=== PATIENT | female | born 1980 | race Caucasian/White ===

== ENCOUNTER 2017-12-30 11:30 | Emergency (ER) | payer OTHER ==
[2017-12-30 12:02] LABS: Absolute Lymphocytes (CBC) 0.2 K/uL (0.7-4.9); Absolute Monocytes 0.4 K/uL (0.1-1.3); Absolute Neutrophil 10.5 K/uL (1.8-8.0); Basophils % 0.2 % (0-1.3); Lymphocytes % 1.6 % (15.3-44.8); MCH 29.8 pg (27.0-35.0); MCV 87.5 fL (80-100); MPV 8.5 fL (7.6-11.3); Monocytes % 3.4 % (3.3-12.3); RBC Red Blood Cell Count 3.89 M/uL (3.86-4.86)
[2017-12-30 12:03] LABS: Protime INR 0.99
[2017-12-30 12:11] LABS: ALT/SGPT 43 U/L (12-78); AST/SGOT 44 U/L (15-37); Albumin 2.5 g/dL (3.4-5.0); Alkaline Phosphatase 94 U/L (45-117); BUN Blood Urea Nitrogen 7 mg/dL (7-18); Bicarbonate 24 mmol/L (21-32); Bilirubin Direct 0.2 mg/dL (0-0.2); Bilirubin Total 0.5 mg/dL (0.2-1.0); CKMB Creatine Kinase MB 1.9 ng/mL (0.3-3.6); Creatine Phosphokinase 132 U/L (26-192); Glucose Level 102 mg/dL (74-106); Lipase 172 U/L (73-393); Potassium 3.3 mmol/L (3.5-5.1); Protein, Total 5.9 g/dL (6.4-8.2); Sodium Level 141 mmol/L (136-145); Troponin (Emerg Dept Use Only) < 0.02 ng/mL (0.0-0.045)
[2017-12-30 12:26] LABS: Platelet Estimate ADEQ; Urine White Blood Cell Casts OK
[2017-12-30 12:27] LABS: Blood Morphology Comment NOT SEEN (NOT SEEN)
[2017-12-30] MEDS ORDERED: KETOROLAC 30 MG/ML INJ ONE (12:51)
[2017-12-30 13:32] LABS: Urine Blood NEGATIVE (NEG); Urine Glucose NEGATIVE (NEG); Urine Protein NEGATIVE (NEG)
--- NOTE | 2017-12-30 13:57 | RAD REPORT ---
EXAM DESCRIPTION: CT - Abdomen Pelvis W Contrast - 12/30/2017 1:30 pm CLINICAL HISTORY: Abdominal pain/back pain and bilateral leg radiculopathy COMPARISON: none. TECHNIQUE: Computed axial tomography of the abdomen pelvis was obtained. 100 cc Isovue-300 was admin istered intravenously. Oral contrast was not requested which limits evaluation of bowel. All CT scans are performed using dose optimization technique as appropriate and may include automated exposure control or mA/KV adjustment according to patient size. FINDINGS: The liver, spleen, pancreas, adrenal and kidneys appear unremarkable. There is no evidence of diverticulitis. A Hernadez catheter is present within the bladder. An enlarged uterus is seen. Minimal posterior subluxation of L5 on S1 is noted. Inhomogeneity involves the anterior spinal canal at the L5-S1 level. IMPRESSION: Inhomogeneity involves the anterior aspect of the thecal sac at the L5-S1 level. This pr obably represents a combination of small disc bulge and epidural venous plexus. A small epidural mass such as hematoma although possible is considered less likely. Evaluation is limited on CT. Given the patient's clinical history MRI of the lumbar spine is recommended for further evaluation
[2017-12-30] MEDS ORDERED: FENTANYL CITR 100 MCG/2 ML ONE (14:18)
--- NOTE | 2017-12-30 14:34 | EDPHYS ---
Physician Documentation [facility] Name: Bhaskar Harris Age: 37 yrs Sex: Female : 1980 Arrival Date: 12/30/2017 Time: 11:34 Bed 6 Private MD: ED Physician Jerzy Viera HPI: 12/30 14:23 This 37 yrs old Female presents to ER via EMS with complaints of Back Pain, gs Pelvic Pain, pain. 14:23 The patient presents with pain that is acute. The symptoms are located in the low back. gs Onset: The symptoms/episode began/occurred acutely, last night. The pain radiates to the right leg and left leg. Associated signs and symptoms: Pertinent negatives: dysuria, fever, incontinence, numbness, urinary retention. The problem was sustained gave in tub last night. Modifying factors: The patient symptoms are alleviated by nothing, the patient symptoms are aggravated by any movement, movement, walking. Severity of symptoms: At their worst the symptoms were incapacitating, in the emergency department the symptoms are unchanged. 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 - Ebola Screening: : No symptoms or risks identified at this time. - Social history:: Smoking status: Patient/guardian denies using tobacco. ROS: 14:23 All other systems are negative. gs Exam: 14:23 Head/Face: Normocephalic, atraumatic. Eyes: Pupils equal round and reactive to light, gs extra-ocular motions intact. Lids and lashes normal. Conjunctiva and sclera are non-icteric and not injected. Cornea within normal limits. Periorbital areas with no swelling, redness, or edema. ENT: Nares patent. No nasal discharge, no septal abnormalities noted. Tympanic membranes are normal and external auditory canals are clear. Oropharynx with no redness, swelling, or masses, exudates, or evidence of obstruction, uvula midline. Mucous membranes moist. Neck: Trachea midline, no thyromegaly or masses palpated, and no cervical lymphadenopathy. Supple, full range of motion without nuchal rigidity, or vertebral point tenderness. No Meningismus. Chest/axilla: Normal chest wall appearance and motion. Nontender with no deformity. No lesions are appreciated. Respiratory: Lungs have equal breath sounds bilaterally, clear to auscultation and percussion. No rales, rhonchi or wheezes noted. No increased work of breathing, no retractions or nasal flaring. Abdomen/GI: Soft, non-tender, with normal bowel sounds. No distension or tympany. No guarding or rebound. No evidence of tenderness throughout. Back: No spinal tenderness. No costovertebral tenderness. Full range of motion. 14:23 Skin: Warm, dry with normal turgor. Normal color with no rashes, no lesions, and no evidence of cellulitis. MS/ Extremity: Pulses equal, no cyanosis. Neurovascular intact. Full, normal range of motion. 14:23 Constitutional: The patient appears alert, awake, uncomfortable. 14:23 Cardiovascular: Rate: tachycardic, Rhythm: regular, Pulses: no pulse deficits are appreciated. 14:23 Neuro: Orientation: is normal, Mentation: is normal, Memory: is normal, Cranial nerves: CN II- XII are normal as tested, Cerebellar function: is grossly normal, Motor: moves all fours, severe pain with movent of lower extremities, normal dorsi/plantar flex ankles, Sensation: no obvious gross deficits, pin prick testing is normal. Vital Signs: 11:37 BP 118 / 76; Pulse 115; Resp 18 S; Temp 98.3(O); Pulse Ox 100% on R/A; Pain 6/10; aa5 12:00 BP 110 / 73; Pulse 109; Resp 16; Pulse Ox 99% ; sv 13:00 BP 118 / 71; Pulse 112; Resp 14; Pulse Ox 100% ; sv 13:41 BP 126 / 80; Pulse 118; Resp 14; Pulse Ox 100% ; sv 14:00 BP 121 / 80; Pulse 118; Resp 18; Pulse Ox 100% on R/A; sv 14:50 Temp 99.6(O); sv 15:00 BP 128 / 84; Pulse 127 MON; Resp 14; Pulse Ox 99% on R/A; sv 15:38 Pulse 120; Resp 16; Pulse Ox 99% ; sv 16:23 BP 106 / 62; Pulse 117; Resp 18; Pulse Ox 98% on R/A; sv 16:28 Temp 100.5(O); Pain 5/10; sv 17:12 BP 121 / 69; Pulse 119; Resp 18; Pulse Ox 98% ; sv 15:00 Sinus tachycardia sv MDM: 11:59 Patient medically screened. gs 14:23 Differential diagnosis: Epidural or Perispinal Abcess Epidural or Perispinal Bleed gs Fracture ruptured disc. Data reviewed: vital signs, nurses notes. Response to treatment: the patient's symptoms have mildly improved after treatment, and as a result, I will transfer. 12/30 11:41 Order name: Basic Metabolic Panel; Complete Time: 12:38 sv 12/30 11:41 Order name: CBC with Diff; Complete Time: 12:38 sv 12/30 11:41 Order name: Ckmb; Complete Time: 12:38 sv 12/30 11:41 Order name: CPK; Complete Time: 12:38 sv 12/30 11:41 Order name: Hepatic Function; Complete Time: 12:38 sv 12/30 11:41 Order name: Lipase; Complete Time: 12:38 sv 12/30 11:41 Order name: Magnesium; Complete Time: 12:38 sv 12/30 11:41 Order name: Protime (+inr); Complete Time: 12:38 sv 12/30 11:41 Order name: Ptt, Activated; Complete Time: 12:38 sv 12/30 11:41 Order name: Troponin (emerg Dept Use Only); Complete Time: 12:38 sv 12/30 12:08 Order name: CBC Smear Scan; Complete Time: 12:38 EDMS 12/30 13:16 Order name: Urine Dipstick--Ancillary (enter results); Complete Time: 13:38 eb 12/30 13:16 Order name: Urine --Ancillary (enter results); Complete Time: 13:38 eb 12/30 15:14 Order name: Blood Culture Adult (2) sv 12/30 11:41 Order name: EKG; Complete Time: 11:42 sv 12/30 11:41 Order name: Cardiac monitoring; Complete Time: 12:01 sv 12/30 11:41 Order name: EKG - Nurse/Tech; Complete Time: 12:01 sv 12/30 11:41 Order name: IV Saline Lock; Complete Time: 11:41 sv 12/30 12:26 Order name: CT Abd/Pelvis - W/Contrast; Complete Time: 14:01 gs 12/30 13:53 Order name: Diet Regular; Complete Time: 13:54 aa5 12/30 11:41 Order name: Labs collected and sent; Complete Time: 11:41 sv 12/30 11:41 Order name: NPO; Complete Time: 11:54 sv 12/30 11:41 Order name: O2 Per Protocol; Complete Time: 11:41 sv 12/30 11:41 Order name: O2 Sat Monitoring; Complete Time: 11:41 sv 12/30 11:41 Order name: Urine Dipstick-Ancillary (obtain specimen); Complete Time: 14:00 sv Administered Medications: 11:35 Drug: NS 0.9% 1000 ml Route: IV; Rate: 1 bolus; Site: right antecubital; sv 13:18 Follow up: Response: No adverse reaction; IV Status: Completed infusion; IV Intake: sv 1000ml 12:47 Drug: TORadol 15 mg Route: IVP; Site: right antecubital; jl7 13:18 Follow up: Response: No adverse reaction sv 14:16 Drug: fentaNYL (PF) 50 mcg Route: IVP; Site: right antecubital; jl7 14:30 Follow up: Response: No adverse reaction sv 15:05 Drug: NS 0.9% 1000 ml Route: IV; Rate: 125 ml/hr; Site: right antecubital; sv 17:00 Follow up: Response: No adverse reaction; IV Status: Infusion continued upon transfer sv 15:10 Drug: Zofran 4 mg Route: IVP; Site: right antecubital; sv 16:18 Follow up: Response: No adverse reaction sv 15:10 Drug: Tylenol 650 mg Route: PO; sv 15:30 Follow up: Response: No adverse reaction sv 15:12 Drug: morphine 4 mg Route: IVP; Site: right antecubital; sv 16:17 Follow up: Response: No adverse reaction sv 16:09 Drug: Dilaudid 0.5 mg Route: IVP; Site: right antecubital; sv 16:48 Drug: Dilaudid 0.5 mg Route: IVP; Site: right antecubital; jl7 17:10 Follow up: Response: No adverse reaction sv 16:49 Drug: Tylenol 325 mg Route: PO; jl7 17:00 Follow up: Response: No adverse reaction sv Disposition: 12/30/17 14:[address] [facility]. Diagnosis is Epidural hemorrhage - spine. - Reason for transfer: Higher level of care. - Accepting physician is robert. - Condition is Stable. - Problem is new. - Symptoms are unchanged. Signatures: Dispatcher [employer] EDSD Lanette Baldwin RN RN Luma Dimas RN RN aa5 Lidia Palacios RN RN jl7 Jerzy Viera MD MD gs Corrections: (The following items were deleted from the chart) 13:24 12:26 Spine Lumbar Wo Con+CT.RAD.BRZ ordered. [facility] 17:13 14:33 12/30/2017 14:[address] [facility]. Diagnosis is sv Epidural hemorrhage - spine. Reason for transfer: Higher level of care. Accepting physician is robert. Condition is Stable. Problem is new. Symptoms are unchanged. gs
--- NOTE | 2017-12-30 14:34 | ER ---
Nurse's Notes [facility] Name: Bhaskar Harris Age: 37 yrs Sex: Female : 1980 Arrival Date: 12/30/2017 Time: 11:34 Bed 6 Private MD: Diagnosis: Epidural hemorrhage-spine Presentation: 12/30 11:34 Presenting complaint: Patient states: back pain radiating to pelvis and kin hips that aa5 began during the night. Pt states "my was helping me to the bathroom and I passed out so he helped me down to the floor". Pt reports vaginal delivery yesterday at 1214. Transition of care: patient was not received from another setting of care. Onset of symptoms was December 2017. Risk Assessment: Do you want to hurt yourself or someone else? Patient reports no desire to harm self or others. Care prior to arrival: Medication(s) given: Normal saline infusion, 300cc bolus IV initiated. 20 GA, in the right antecubital area. 11:34 Method Of Arrival: EMS: [facility] aa5 11:34 Acuity: DOTTIE 3 aa5 11:35 Initial Sepsis Screen: Does the patient meet any 2 criteria? No. Patient's initial sv sepsis screen is negative. Does the patient have a suspected source of infection? No. Patient's initial sepsis screen is negative. 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 - Ebola Screening: : No symptoms or risks identified at this time. - Social history:: Smoking status: Patient/guardian denies using tobacco. Screenin:35 Abuse screen: Denies threats or abuse. Denies injuries from another. Nutritional sv screening: No deficits noted. Tuberculosis screening: No symptoms or risk factors identified. Fall Risk No fall in past 12 months (0 pts). Secondary diagnosis (15 points) impaired mobility, IV access (20 points). Ambulatory Aid- None/Bed Rest/Nurse Assist (0 pts). Gait- Weak (10 pts.). Mental Status- Oriented to own ability (0 pts). Total Kurtz Fall Scale indicates High Risk Score (45 or more points). Fall prevention measures have been instituted. Side Rails Up X 2 Placed Close to Nursing Station Frequent Obs/Assessments Occuring Family Present and informed to notify staff if the need to leave the bedside As available patient and family educated on Fall Prevention Program and Strategies. Assessment: 11:35 General: Appears in no apparent distress. uncomfortable, well developed, Behavior is sv cooperative, appropriate for age, crying. Pain: Complains of pain in low back area, right iliac crest, left iliac crest, left hip, right hip, right upper thigh, right quadriceps, left upper thigh and left quadriceps Pain currently is 6 out of 10 on a pain scale. Quality of pain is described as shooting, Is continuous, Aggravated by increased activity, repositioning, Noted to be resistant to movement. Neuro: Level of Consciousness is awake, alert, obeys commands, Oriented to person, place, time, situation, Speech is normal, Reports a syncopal episode. Cardiovascular: Patient's skin is warm and dry. Pulses are 3+ in right radial artery and left radial artery Rhythm is sinus tachycardia. Respiratory: Respiratory effort is even, unlabored, Respiratory pattern is regular, symmetrical. : Reports vaginal bleeding that is bright red, light flow. Derm: Skin is pink, warm \\T\\ dry. 12:45 Reassessment: Patient appears in no apparent distress at this time. No changes from sv previously documented assessment. Patient and/or family updated on plan of care and expected duration. Pain level reassessed. Patient is alert, oriented x 3, equal unlabored respirations, skin warm/dry/pink. 14:16 Reassessment: Patient appears in no apparent distress at this time. No changes from sv previously documented assessment. Patient and/or family updated on plan of care and expected duration. Pain level reassessed. Patient is alert, oriented x 3, equal unlabored respirations, skin warm/dry/pink. 15:05 Reassessment: Patient appears in no apparent distress at this time. No changes from sv previously documented assessment. Patient and/or family updated on plan of care and expected duration. Pain level reassessed. Patient is alert, oriented x 3, equal unlabored respirations, skin warm/dry/pink. 16:29 Reassessment: Transfer center asked to call back for report in 10 mins. Ok to send the sv pt to [place]. 16:31 Reassessment: Patient appears in no apparent distress at this time. No changes from sv previously documented assessment. Patient and/or family updated on plan of care and expected duration. Pain level reassessed. Patient is alert, oriented x 3, equal unlabored respirations, skin warm/dry/pink. 17:12 Reassessment: Report given to [facility]. Vital Signs: 11:37 BP 118 / 76; Pulse 115; Resp 18 S; Temp 98.3(O); Pulse Ox 100% on R/A; Pain 6/10; aa5 12:00 BP 110 / 73; Pulse 109; Resp 16; Pulse Ox 99% ; sv 13:00 BP 118 / 71; Pulse 112; Resp 14; Pulse Ox 100% ; sv 13:41 BP 126 / 80; Pulse 118; Resp 14; Pulse Ox 100% ; sv 14:00 BP 121 / 80; Pulse 118; Resp 18; Pulse Ox 100% on R/A; sv 14:50 Temp 99.6(O); sv 15:00 BP 128 / 84; Pulse 127 MON; Resp 14; Pulse Ox 99% on R/A; sv 15:38 Pulse 120; Resp 16; Pulse Ox 99% ; sv 16:23 BP 106 / 62; Pulse 117; Resp 18; Pulse Ox 98% on R/A; sv 16:28 Temp 100.5(O); Pain 5/10; sv 17:12 BP 121 / 69; Pulse 119; Resp 18; Pulse Ox 98% ; sv 15:00 Sinus tachycardia sv ED Course: 11:34 Patient arrived in ED. aa5 11:35 Patient has correct armband on for positive identification. Bed in low position. Call sv light in reach. Side rails up X2. Adult w/ patient. cloth dye range operator on. Pulse ox on. NIBP on. Door closed. Warm blanket given. Head of bed elevated. 11:35 Initial lab(s) drawn, by me, sent to lab. Maintain EMS IV. Dressing intact. Good blood sv return noted. Site clean \\T\\ dry. Gauge \\T\\ site: 20G R AC. 11:36 Triage completed. aa5 11:36 Arm band placed on. aa5 11:40 Lanette Baldwin RN is Primary Nurse. sv 11:43 Jerzy Viera MD is Attending Physician. gs 12:55 Hernadez cath inserted, using sterile technique, 16 Fr., by me, balloon inflated, to sv gravity drainage, urine specimen collected. returned clear yellow urine. Patient tolerated well. 13:30 CT completed. Patient moved to CT via stretcher. Patient moved back from CT. cw1 13:30 CT Abd/Pelvis - W/Contrast In Process Unspecified. EDMS 13:[address] back [address]. sv 14:04 \\T\\[id number] initiated a transfer with Bev at the [facility] transfer center. eb 14:[address] Dolan the Neurologist laborer concrete paving for [facility] with Dr. Viera for patient eb transfer consultation. 14:54 Bev from [facility] called and asked for a 30 min extension. eb 15:32 Bev from [facility] called and said they are cleaning a room in the icu and once it eb is cleaned she will call back and give me administrative approval. 16:51 No provider procedures requiring assistance completed. Patient transferred, IV remains sv in place. intact. Administered Medications: 11:35 Drug: NS 0.9% 1000 ml Route: IV; Rate: 1 bolus; Site: right antecubital; sv 13:18 Follow up: Response: No adverse reaction; IV Status: Completed infusion; IV Intake: sv 1000ml 12:47 Drug: TORadol 15 mg Route: IVP; Site: right antecubital; jl7 13:18 Follow up: Response: No adverse reaction sv 14:16 Drug: fentaNYL (PF) 50 mcg Route: IVP; Site: right antecubital; jl7 14:30 Follow up: Response: No adverse reaction sv 15:05 Drug: NS 0.9% 1000 ml Route: IV; Rate: 125 ml/hr; Site: right antecubital; sv 17:00 Follow up: Response: No adverse reaction; IV Status: Infusion continued upon transfer sv 15:10 Drug: Zofran 4 mg Route: IVP; Site: right antecubital; sv 16:18 Follow up: Response: No adverse reaction sv 15:10 Drug: Tylenol 650 mg Route: PO; sv 15:30 Follow up: Response: No adverse reaction sv 15:12 Drug: morphine 4 mg Route: IVP; Site: right antecubital; sv 16:17 Follow up: Response: No adverse reaction sv 16:09 Drug: Dilaudid 0.5 mg Route: IVP; Site: right antecubital; sv 16:48 Drug: Dilaudid 0.5 mg Route: IVP; Site: right antecubital; jl7 17:10 Follow up: Response: No adverse reaction sv 16:49 Drug: Tylenol 325 mg Route: PO; jl7 17:00 Follow up: Response: No adverse reaction sv Intake: 13:18 IV: 1000ml; Total: 1000ml. sv Output: 13:51 Urine: 800ml (Hernadez); Total: 800ml. sv Outcome: 14:33 ER care complete, transfer ordered by . 16:51 Transferred by [facility] to [facility], Transfer form completed. sv X-rays sent w/ patient. Note: Report given to Mechelle JAMES 16:51 Condition: stable 16:51 Instructed on the need for transfer. 17:13 Patient left the ED. sv Signatures: Dispatcher [employer] EDLanette Garzon, RN RN sv Luma Dimas, RN RN aa5 Stephen, Olga Lidia cw1 Lidia Palacios RN RN jl7 Jerzy Viera MD MD gs Botello, Elizabeth eb Corrections: (The following items were deleted from the chart) 16:01 13:12 morphine 4 mg IVP in right antecubital sv sv 16:02 13:10 Zofran 4 mg IVP in right antecubital sv sv 16:11 16:09 Dilaudid 1 mg IVP in right antecubital sv sv 16:54 16:50 Dilaudid 1 mg IVP in right antecubital jl7 jl7
[2017-12-30] MEDS ORDERED: NA CHLORIDE 0.9% 1,000 ML ONE (14:41)
[2017-12-30] MEDS ORDERED: ACETAMINOPHEN 325 MG TABLET ONE ×2 (15:01→16:51)
[2017-12-30] MEDS ORDERED: MORPHINE 4 MG/ML SYR ONE (15:02)
[2017-12-30] MEDS ORDERED: ONDANSETRON 4 MG/2 ML VIAL ONE (15:12)
[2017-12-30] MEDS ORDERED: HYDROMORPHONE HCL 1 MG/ML INJ ONE (16:06)
--- NOTE | 2017-12-31 19:17 | EKG ---
Test Date: 2017-12-30 Test Time: 11:54:41 Psychology Technician: JOJO MEASUREMENT RESULTS: Intervals: Rate: 110 ND: 152 QRSD: 76 QT: 330 QTc: 446 [place]: P: 62 ND: 152 QRS: 36 T: 27 INTERPRETIVE STATEMENTS: Sinus tachycardia Otherwise normal ECG No previous ECG available for comparison Electronically Signed On 12-31-17 19:14:55 CDT by Saji Villegas
== END 2017-12-30 17:13 | disposition short-term general hospital (02) ==
LOC: ER 11:30
DX: S06.4X0A Epidural hemorrhage without loss of consciousness, initial encounter (principal)
CPT/HCPCS: 36415; 51702; 74177; 80048; 80076; 81003; 81025; 82550; 82553; 83690; 83735; 84484; 85025; 85610; 85730; 87040; 93005; 96361; 96374; 96375; 99285; J1170; J2405; J3010; J7030; Q9967

== ENCOUNTER 2018-09-15 22:51 | Emergency (ER) | payer OTHER ==
--- OUTSIDE RECORDS SUMMARY | 2018-09-15 22:53 | XMS REPORT | Clinical Summary ---
:1980 Author Organization [facility] Address [address] [place] [address] Care Team Providers Name Role Phone Pcp, No Primary Care Provider Unavailable Allergies No Known Allergies Medications Medication Sig Dispensed Refills Start End Date Status Date multivitamin per Take 1 tablet 0 Active tablet by mouth daily. pregabalin Take 1 capsule 90 capsule 11 01/09/20 Active (LYRICA) 75 MG (75 mg total) 8 19 capsule by mouth 3 (three) times daily. Max Daily Amount: 225 mg senna-docusate Take 1 tablet 60 tablet 11 01/09/20 Active (SENOKOT S) by mouth 2 8 19 8.6-50 mg per (two) times tablet daily. omeprazole Take 1 capsule 30 capsule 11 01/09/20 Active (PRILOSEC) 40 MG (40 mg total) 8 19 capsule by mouth daily. acetaminophen Take 1 tablet 30 tablet 0 01/19/20 (TYLENOL) 500 MG (500 mg total) 8 18 tablet by mouth every 4 (four) hours for [address] 1 12 suppository 0 01/19/20 (DULCOLAX) 10 mg suppository (10 8 18 suppository mg total) rectally daily as needed for up to 10 days. oxyCODONE Take 1 tablet 30 tablet 0 01/09/20 Discontinued (ROXICODONE) 5 MG (5 mg total) by 8 18 immediate release mouth every 4 tablet (four) hours as needed for up to 10 days. Max Daily Amount: 30 mg polyethylene Take 17 g by 14 each 0 01/13/20 glycol (GLYCOLAX) mouth daily for 8 18 17 gram packet 3 days. oxyCODONE Take 2 tablets 60 tablet 0 01/19/20 (ROXICODONE) 5 MG (10 mg total) 8 18 immediate release by mouth every tablet 4 (four) hours as needed for up to 10 days. Max Daily Amount: 60 mg ibuprofen Take 1 tablet 30 tablet 0 01/19/20 (ADVIL,MOTRIN) (400 mg total) 8 18 400 MG tablet by mouth every 6 (six) hours as needed for Pain for up to 10 days. Active Problems Problem Noted Date Sacroiliitis 01/07/2018 Bacteremia 01/07/2018 Lumbar pain 12/31/2017 Epidural hematoma 12/30/2017 Encounters Date Type Specialty Care Team Description 03/26/2018 [facility] Radiology [facility] Richardson Osteomyelitis of Encounter MD Phuong lumbar spine ([facility]) 03/08/2018 [facility] Diseases MD Phuong lumbar spine ([facility]) (Primary Dx) 02/23/2018 Orders Only Infectious Kumary, Axelyebunmi O. Bilateral Diseases sacroiliitis (HCC) (Primary Dx) 02/01/2018 Orders Only Infectious Kutemi Oyebunmi O. Bilateral Diseases sacroiliitis (HCC) (Primary Dx) 01/05/2018 Surgery Virtual, Surgeon PROCEDURE DONE OUTSIDE OR 01/05/2018 Anesthesia Event Shelbie Price CRNA 01/02/2018 Travel 12/30/2017 Anesthesia Event Clark Yuan MD 12/30/2017 Surgery Virtual, Surgeon PROCEDURE DONE OUTSIDE OR 12/30/2017 - [facility] General Internal [facility] Dolan, Epidural hematoma ([facility]); 01/08/2018 Encounter Medicine Chethan Lumbar pain; MD Markell Severe sepsis ([facility]); Ortega Solis Streptococcal bacteremia; MD Robert Sacroiliitis ([facility]); Miryam Rome Abscess MD Rahul Melo Alok, MD after 09/14/2017 Family History Medical History Relation Name Comments No Known Problem Maternal Grandfather Hypertension Maternal Grandmother Cancer Mother cervical and skin Other Mother acoustic neuroma Colon cancer Paternal Grandfather Dementia Paternal Grandmother alzheimer's Asthma Sister Relation Name Status Comments Maternal Grandfather Maternal Grandmother Mother Paternal Grandfather Paternal Grandmother Sister Social History Tobacco Use Types Packs/Day Years Used Date Never Smoker Smokeless Tobacco: Never Used Alcohol Use Drinks/Week oz/Week Comments No Alcohol Habits Answer Date Recorded How often do you have a drink containing alcohol? Never 01/03/2018 How many drinks containing alcohol do you have on a typical Not asked day when you are drinking? How often do you have six or more drinks on one occasion? Not asked Sex Assigned at Date Recorded Not on file Job Start Date Occupation Industry Not on file Not on file Not on file Travel History Travel Start Travel End No recent travel history available. Last Filed Vital Signs Vital Sign Reading Time Taken Blood Pressure 143/79 01/08/2018 4:13 PM [employer] Pulse 76 01/08/2018 4:13 PM [employer] Temperature 36.7 C (98.1 F) 01/08/2018 4:13 PM [employer] Respiratory Rate 18 01/08/2018 4:13 PM [employer] Oxygen Saturation 97% 01/08/2018 4:13 PM [employer] Inhaled Oxygen Concentration - - Weight 72.3 kg (159 lb 6.4 oz) 01/08/2018 6:42 AM [employer] Height 165.1 cm (5' 5") 12/30/2017 7:11 PM CDT Body Mass Index 26.53 01/08/2018 6:42 AM [employer]AIL [employer] Plan of Treatment Not on file Procedures Procedure Name Priority Date/Time Associated Comments Diagnosis MR SPINE LUMBAR WITHOUT Routine 03/26/2018 11:38 Results for this IV CONTRAST AM [employer] procedure are in the results section. RHYTHM STRIP - SCAN 01/10/2018 10:53 AM [employer]GER BASIC METABOLIC PANEL Routine 01/08/2018 4:09 Results for this (7) AM [employer] procedure are in the results section. BASIC METABOLIC PANEL Routine 01/07/2018 4:14 Results for this (7) AM [employer] procedure are in the results section. (CELLAVISION MANUAL Routine 01/06/2018 5:53 Results for this DIFF) AM CDT procedure are in the results section. CBC W/PLT COUNT & AUTO Routine 01/06/2018 5:53 Results for this DIFFERENTIAL AM CDT procedure are in the results section. COMPREHENSIVE METABOLIC Routine 01/06/2018 5:53 Results for this PANEL AM CDT procedure are in the results section. CBC W/PLT COUNT & AUTO Routine 01/06/2018 5:53 Results for this DIFFERENTIAL AM CDT procedure are in the results section. MR LUMBAR SPINE W & WO Routine 01/05/2018 12:15 Results for this CONTRAST PM CDT procedure are in the results section. PROCEDURE DONE OUTSIDE 01/05/2018 11:42 Intraspinal abscess OR AM CDT ECHOCARDIOGRAM REPORT - 01/05/2018 10:20 SCAN AM CDT (CELLAVISION MANUAL Routine 01/05/2018 5:53 Results for this DIFF) AM CDT procedure are in the results section. CBC W/PLT COUNT & AUTO Routine 01/05/2018 5:53 Results for this DIFFERENTIAL AM CDT procedure are in the results section. BASIC METABOLIC PANEL Routine 01/05/2018 5:53 Results for this (7) AM CDT procedure are in the results section. CBC W/PLT COUNT & AUTO Routine 01/05/2018 5:53 Results for this DIFFERENTIAL AM CDT procedure are in the results section. TRANSESOPHAGEAL ECHO Routine 01/04/2018 8:03 Results for this AM CDT procedure are in the results section. POCT-GLUCOSE METER Routine 01/04/2018 7:46 Results for this AM CDT procedure are in the results section. CBC W/PLT COUNT & AUTO Routine 01/04/2018 5:03 Results for this DIFFERENTIAL AM CDT procedure are in the results section. BASIC METABOLIC PANEL Routine 01/04/2018 5:03 Results for this (7) AM CDT procedure are in the results section. CBC W/PLT COUNT & AUTO Routine 01/04/2018 5:03 Results for this DIFFERENTIAL AM CDT procedure are in the results section. BLOOD CULTURE Routine 01/03/2018 10:23 Results for this PM CDT procedure are in the results section. CONT WAVE PULSED Routine 01/03/2018 6:50 DOPPLER PM CDT COLOR-FLOW MAPPING Routine 01/03/2018 6:50 PM CDT ECHOCARDIOGRAM REPORT - 01/03/2018 3:11 SCAN PM CDT BLOOD CULTURE Routine 01/03/2018 2:30 Results for this PM CDT procedure are in the results section. 2D ECHO MODE W/O STAT 01/03/2018 9:43 Results for this DOPPLER AM CDT procedure are in the results section. CBC W/PLT COUNT & AUTO Routine 01/03/2018 4:18 Results for this DIFFERENTIAL AM CDT procedure are in the results section. BASIC METABOLIC PANEL Routine 01/03/2018 4:18 Results for this (7) AM CDT procedure are in the results section. CBC W/PLT COUNT & AUTO Routine 01/03/2018 4:18 Results for this DIFFERENTIAL AM CDT procedure are in the results section. LACTIC ACID, VENOUS Routine 01/03/2018 4:18 Results for this AM CDT procedure are in the results section. CT CHEST PE TEST DESIGN Routine 01/02/2018 10:25 Results for this AM CDT procedure are in the results section. CBC W/PLT COUNT & AUTO Routine 01/02/2018 4:09 Results for this DIFFERENTIAL AM CDT procedure are in the results section. LACTIC ACID, VENOUS Routine 01/02/2018 4:09 Results for this AM CDT procedure are in the results section. BASIC METABOLIC PANEL Routine 01/02/2018 4:09 Results for this (7) AM CDT procedure are in the results section. CBC W/PLT COUNT & AUTO Routine 01/02/2018 4:09 Results for this DIFFERENTIAL AM CDT procedure are in the results section. TRANSFUSION SERVICE 01/01/2018 5:51 REPORT - SCAN PM CDT LACTIC ACID, VENOUS STAT 01/01/2018 5:35 Results for this PM CDT procedure are in the results section. BLOOD CULTURE Routine 01/01/2018 5:09 Results for this PM CDT procedure are in the results section. BLOOD CULTURE Routine 01/01/2018 5:09 Results for this PM CDT procedure are in the results section. LACTIC ACID, VENOUS STAT 01/01/2018 3:41 Results for this PM CDT procedure are in the results section. PROCALCITONIN STAT 01/01/2018 3:41 Results for this PM CDT procedure are in the results section. XR CHEST 1 VIEW STAT 01/01/2018 3:29 Results for this PORTABLE/BEDSIDE PM CDT procedure are in the results section. VENOUS DOPPLER LEGS Routine 01/01/2018 10:19 Results for this BILATERAL AM CDT procedure are in the results section. US PELVIS NAHNU 01/01/2018 6:17 Results for this AM CDT procedure are in the results section. US ENDOVAGINAL EV NAHUN 01/01/2018 6:17 Results for this AM CDT procedure are in the results section. CBC W/PLT COUNT & AUTO Routine 01/01/2018 3:32 Results for this DIFFERENTIAL AM CDT procedure are in the results section. HEPATIC FUNCTION PANEL Routine 01/01/2018 3:32 Results for this AM CDT procedure are in the results section. BASIC METABOLIC PANEL Routine 01/01/2018 3:32 Results for this (7) AM CDT procedure are in the results section. CBC W/PLT COUNT & AUTO Routine 01/01/2018 3:32 Results for this DIFFERENTIAL AM CDT procedure are in the results section. UTERUS CULTURE + GRAM Routine 12/31/2017 8:19 Results for this STAIN PM CDT procedure are in the results section. BLOOD CULTURE Routine 12/31/2017 2:13 Results for this IDENTIFICATION PANEL AM CDT procedure are in the results section. BLOOD CULTURE Routine 12/31/2017 2:13 Results for this AM CDT procedure are in the results section. URINALYSIS W/ REFLEX Routine 12/31/2017 2:07 Results for this URINE CULTURE AM CDT procedure are in the results section. BLOOD CULTURE Routine 12/31/2017 2:07 AM CDT TYPE AND SCREEN, Routine 12/31/2017 1:50 Results for this AUTOMATED AM CDT procedure are in the results section. BASIC METABOLIC PANEL Routine 12/31/2017 1:50 Results for this (7) AM CDT procedure are in the results section. CBC W/PLT COUNT & AUTO Routine 12/31/2017 1:47 Results for this DIFFERENTIAL AM CDT procedure are in the results section. CBC W/PLT COUNT & AUTO Routine 12/31/2017 1:47 Results for this DIFFERENTIAL AM CDT procedure are in the results section. MR LUMBAR SPINE W & WO STAT 12/31/2017 12:43 Results for this CONTRAST AM CDT procedure are in the results section. PROCEDURE DONE OUTSIDE 12/30/2017 9:15 Abscess in epidural OR PM CDT space of lumbar spine CBC W/PLT COUNT & AUTO Routine 12/30/2017 7:52 Results for this DIFFERENTIAL PM CDT procedure are in the results section. BASIC METABOLIC PANEL Routine 12/30/2017 7:52 Results for this (7) PM CDT procedure are in the results section. CBC W/PLT COUNT & AUTO Routine 12/30/2017 7:52 Results for this DIFFERENTIAL PM CDT procedure are in the results section. PROTHROMBIN TIME/INR Routine 12/30/2017 7:52 Results for this PM CDT procedure are in the results section. APTT Routine 12/30/2017 7:52 Results for this PM CDT procedure are in the results section. SCREEN, URINE Routine 12/30/2017 7:52 Results for this PM CDT procedure are in the results section. after 09/14/2017 Results MR spine lumbar without IV contrast (03/26/2018 11:38 AM [employer]) Specimen Narrative Performed At FINAL REPORT [facility] MR, SPINE, LUMBAR, WITHOUT CONTRAST INDICATION: Abnormal xray, lumbar spine, bone destruction follow up MRI 01/05 COMPARISON: January 05, 2018 TECHNIQUE: Multiplanar, multisequence MR images of the lumbar spine without contrast. FINDINGS: Numbering: Last fully formed disc space is designated L5-S1. Spinal cord: The conus medullaris is normal is size, signal intensity, and position, terminating at theL1 level. Osseous structures: The lumbar spine demonstrates normal alignment without scoliosis or listhesis. Vertebral bodies are normal in height and signal intensity. No aggressive osseous lesions are identified. There is no foraminal or canal stenosis. There is some residual edema along the sacroiliac joints, greater within the sacral alae. Discs:Disc space height are preserved. Small annular fissures are present centrally at L4-5 and L5-S1, where there is minimal desiccation. Paraspinal soft tissues: Paraspinal soft tissues and visible retroperitoneal structures are unremarkable. IMPRESSION: Presumed residual edema of the sacroiliac joints without signal loss to suggest increasing sclerosis of the subchondral bone along the iliac side of the sacroiliac joints. Signal changes are greatest in the sacrum. Correlation with plain film radiography recommended. Signed: JR Walter Robert MD Report Verified Date/Time:03/26/2018 12:28:18 Reading Location: [facility] [id number] Neuro Reading Room Procedure Note Interface, External Ris In - 03/26/2018 12:30 PM [employer] FINAL REPORT MR, SPINE, LUMBAR, WITHOUT CONTRAST INDICATION: Abnormal xray, lumbar spine, bone destruction follow up MRI 01/05 COMPARISON: January 05, 2018 TECHNIQUE: Multiplanar, multisequence MR images of the lumbar spine without contrast. FINDINGS: Numbering: Last fully formed disc space is designated L5-S1. Spinal cord: The conus medullaris is normal is size, signal intensity, and position, terminating at the L1 level. Osseous structures: The lumbar spine demonstrates normal alignment without scoliosis or listhesis. Vertebral bodies are normal in height and signal intensity. No aggressive osseous lesions are identified. There is no foraminal or canal stenosis. There is some residual edema along the sacroiliac joints, greater within the sacral alae. Discs: Disc space height are preserved. Small annular fissures are present centrally at L4-5 and L5-S1, where there is minimal desiccation. Paraspinal soft tissues: Paraspinal soft tissues and visible retroperitoneal structures are unremarkable. IMPRESSION: Presumed residual edema of the sacroiliac joints without signal loss to suggest increasing sclerosis of the subchondral bone along the iliac side of the sacroiliac joints. Signal changes are greatest in the sacrum. Correlation with plain film radiography recommended. Signed: JR Saba, Tawnya BHAKTA Report Verified Date/Time: 03/26/2018 12:28:18 Reading Location: [address] Neuro Reading Room Performing Organization Address City/State/Zipcode Phone Number [employer] RHYTHM STRIP - SCAN (01/10/2018 10:53 AM [employer]AIL DISTRICT [employer]GER) Narrative Performed At Basic Metabolic Panel (01/08/2018 4:09 AM [employer]AIL DISTRICT [employer]GER)Only the most recent of9 resultswithin the time period is included. Sodium 142 136 - 145 meq/L [facility] Potassium 3.6 3.5 - 5.1 meq/L [facility] Chloride 108 (H) 98 - 107 meq/L [facility] CO2 24 22 - 29 meq/L [facility] BUN 12 7 - 21 mg/dL [facility] Creatinine 0.54 (L) 0.57 - 1.25 mg/dL [facility] Glucose 89 70 - 105 mg/dL [facility] Calcium 8.6 8.4 - 10.2 mg/dL [facility] EGFR 128Comment: ESTIMATED GFR IS mL/min/1.73 sq m [facility] NOT ACCURATE [facility] CLEARANCE IN PREDICTING GLOMERULAR FILTRATION RATE. ESTIMATED GFR IS NOT APPLICABLE FOR DIALYSIS PATIENTS. Specimen Blood Performing Organization Address City/State/Zipcode Phone Number [facility] [address] [place] [address] CENTER Manual Differential (01/06/2018 5:53 AM CDT)Only the most recent of2 resultswithin the time period is included. % Neutros 79 % [facility] % Lymphs 10 % [facility] % Monos 4 % [facility] % Eos 3 % [facility] % Myelo 3 (H) 0 - 0 % [facility] % Bands 1 0 - 10 % [facility] # Neutros 8.14 (H) 1.56 - 6.13 K/ul [facility] # Lymphs 1.03 (L) 1.18 - 3.74 K/ul [facility] # Monos 0.41 (H) 0.24 - 0.36 K/uL [facility] # Eos 0.31 0.04 - 0.36 K/uL [facility] # Myelo 0.31 (H) 0.00 - 0.00 K/uL [facility] # Bands 0.10 0.00 - 0.80 K/uL [facility] Total Counted 100 [facility] WBC Morphology Normal [facility] Giant Platelet Present [facility] Large Platelet Present [facility] Hypochromia 1+ few [facility] Anisocytosis 1+ few [facility] Macrocytes 1+ few [facility] Poikilocytes 1+ few [facility] Acanthocytes 1+ few [facility] Artifact Present [facility] Platelet Conc Adequate [facility] Specimen Blood Narrative Performed At Received comment: [facility] User comments: Slide comments: Performing Organization Address City/[facility]/Zipcode Phone Number [address] [address] [place] CBC with platelet count + automated diff (01/06/2018 5:53 AM CDT)Only the most recent of8 resultswithin the time period is included. WBC 10.3 3.5 - 10.5 K/L [facility] RBC 3.39 (L) 3.93 - 5.22 M/L [facility] Hemoglobin 9.6 (L) 11.2 - 15.7 GM/DL [facility] Hematocrit 31.1 (L) 34.1 - 44.9 % [facility] MCV 91.7 79.4 - 94.8 fL [facility] MCH 28.3 25.6 - 32.2 pg [facility] MCHC 30.9 (L) 32.2 - 35.5 GM/DL [facility] RDW 13.6 11.7 - 14.4 % [facility] Platelets 316 150 - 450 K/CU MM [facility] MPV 9.6 9.4 - 12.3 fL [facility] nRBC 0 0 - 0 /100 WBC [facility] Specimen Blood Performing Organization Address City/State/Zipcode Phone Number [address] [address] [place] Comprehensive metabolic panel (01/06/2018 5:53 AM CDT) Protein, Total 5.5 (L) 6.0 - 8.3 gm/dL [facility] Albumin 2.6 (L) 3.5 - 5.0 g/dL [facility] Alkaline Phosphatase 123 40 - 150 U/L [facility] Total Bilirubin 0.3 0.2 - 1.2 mg/dL [facility] Sodium 141 136 - 145 meq/L [facility] Potassium 3.6 3.5 - 5.1 meq/L [facility] Chloride 108 (H) 98 - 107 meq/L [facility] CO2 26 22 - 29 meq/L [facility] BUN 9 7 - 21 mg/dL [facility] Creatinine 0.57 0.57 - 1.25 mg/dL [facility] Glucose 87 70 - 105 mg/dL [facility] Calcium 8.4 8.4 - 10.2 mg/dL [facility] AST 30 5 - 34 U/L [facility] ALT 27 6 - 55 U/L [facility] EGFR 121Comment: ESTIMATED mL/min/1.73 sq m [facility] GFR IS NOT ACCURATE [facility] CREATININE CLEARANCE IN PREDICTING GLOMERULAR FILTRATION RATE. ESTIMATED GFR IS NOT APPLICABLE FOR DIALYSIS PATIENTS. Specimen Blood Performing Organization Address City/State/Zipcode Phone Number [facility] [address] [place] [address] CENTER MR lumbar spine without & with IV contrast (01/05/2018 12:15 PM CDT)Only the most recent of2 resultswithin the time period is included. Specimen Narrative Performed At FINAL REPORT [employer] MR Lumbar spine with and without contrast CLINICAL HISTORY: Prior MRI signal abnormality indicating possible epidural hematoma . TECHNIQUE: MRI of the lumbar spine utilizing sagittal T1, T2, STIR, axial T1 and T2-weighted sequences; followed by postgadolinium axial and sagittal T1 fat-saturated sequences. COMPARISON: Lumbar MRI 12/31/2017 FINDINGS: There is no evidence for lumbar epidural hematoma. At L5-S1, a mild broad-based disc bulge is again seen without significant central canal or foraminal stenosis. The other lumbar disc levels are unremarkable. There is maintenance of the lumbar curvature and alignment. The lumbar vertebral body heights are maintained. The lumbar marrow signal is preserved. The conus medullaris terminates at T12-L1 and is unremarkable appearing. There are symmetrical widening of the sacroiliac joints with bilateral effusions. There is symmetrical T1 signal hypointensity along the sacroiliac margins compatible with osteitis condensans. The sacroiliac joint effusions are associated with rim-enhancing fluid collections in the bilateral piriformis muscles, each measuring approximately 2.5 cm x 2.0 cm. There are edema changes in the gluteal muscles and the presacral soft tissues. There is a heterogeneously enlarged boggy uterus compatible with recent status. There is marked distention of the partially imaged bladder. IMPRESSION: No evidence of lumbar epidural hematoma. Bilateral sacroiliitis, a presumed septic arthritis, with bilateral piriformis abscesses. The findings were discussed with Dr. MIRYAM ROME at the time of dictation. Signed: Petra Doshi MD Report Verified Date/Time:01/05/2018 13:31:51 Reading Location: [address] Neuro Reading Room Procedure Note Interface, External Ris In - 01/05/2018 1:33 PM CDT FINAL REPORT MR Lumbar spine with and without contrast CLINICAL HISTORY: Prior MRI signal abnormality indicating possible epidural hematoma . TECHNIQUE: MRI of the lumbar spine utilizing sagittal T1, T2, STIR, axial T1 and T2-weighted sequences; followed by postgadolinium axial and sagittal T1 fat-saturated sequences. COMPARISON: Lumbar MRI 12/31/2017 FINDINGS: There is no evidence for lumbar epidural hematoma. At L5-S1, a mild broad-based disc bulge is again seen without significant central canal or foraminal stenosis. The other lumbar disc levels are unremarkable. There is maintenance of the lumbar curvature and alignment. The lumbar vertebral body heights are maintained. The lumbar marrow signal is preserved. The conus medullaris terminates at T12-L1 and is unremarkable appearing. There are symmetrical widening of the sacroiliac joints with bilateral effusions. There is symmetrical T1 signal hypointensity along the sacroiliac margins compatible with osteitis condensans. The sacroiliac joint effusions are associated with rim-enhancing fluid collections in the bilateral piriformis muscles, each measuring approximately 2.5 cm x 2.0 cm. There are edema changes in the gluteal muscles and the presacral soft tissues. There is a heterogeneously enlarged boggy uterus compatible with recent status. There is marked distention of the partially imaged bladder. IMPRESSION: No evidence of lumbar epidural hematoma. Bilateral sacroiliitis, a presumed septic arthritis, with bilateral piriformis abscesses. The findings were discussed with Dr. MIRYAM ROME at the time of dictation. Signed: Petra Doshi MD Report Verified Date/Time: 01/05/2018 13:31:51 Reading Location: [address] Neuro Reading Room Performing Organization Address City/State/Zipcode Phone Number [employer] ECHOCARDIOGRAM REPORT - SCAN (01/05/2018 10:20 AM CDT) Narrative Performed At Transesophageal echo (01/04/2018 8:03 AM CDT) Ejection Fraction [facility] Specimen Narrative Performed At Transesophageal Echocardiography Report (LENORE) 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 Risks, complications and alternative treatments were reviewed. Written consent was obtained. Procedure Type of Study LENORE procedure:TRANSESOPHAGEAL ECHO Indications:Endocarditis. Clinical History NONE ON FILE Height: 65 inches Weight: 76.66 kg (169 lbs) BSA: 1.84 m^2 BMI: 28.12 kg/m^2 HR: 62 bpm BP: 147/81 mmHg Procedure Informed Consent Procedure consent form obtained. Anesthesia consent obtained. Airway assessment performed. LENORE procedure notes Moderate sedation by performing MD using 5 mg IV versed and 125 mcg IV fentanyl. . Procedure Medications - Versed 5 mg. - Fentanyl 125 mcg. Summary No significant valve disease detected. No evidence of vegetations. Sinus tachycardia during the exam. Signature Findings Rhythm/BPSinus tachycardia during the exam. Left Ventricle Overall LV systolic function appears normal by av ailable views. LV chamber size appears within normal limits by av ailable views. Left AtriumLA size appears qualitatively within normal limits by available views. Right VentricleOverall RV systolic function appears normal by av ailable views. RV chamber size appears within normal limits by av ailable views. Right Atrium RA size is normal. RA catheter is visualized . Atrial SeptumThe interatrial septum is well visualized. No rmal interatrial septum by available views. Aortic Valve Normal AoV structure and function. Th ere is no aortic regurgitation. Mitral Valve Normal MV structure and function. Tr terra mitral regurgitation. Tricuspid ValveNormal TV structure and function. Pulmonic Valve Normal PV structure and function. AortaAortic root size (SInus of Valsalva diameter) is no rmal . Pr oximal ascending aorta size is normal . PericardiumNo significant pericardial effusion is visualized. IVC/SVC/PA/PV/PleuralThe superior vena is partially visualized. An SVC catheter is visualized . 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 Risks, complications and alternative treatments were reviewed. Written consent was obtained. Procedure Type of Study LENORE procedure:TRANSESOPHAGEAL ECHO Indications:Endocarditis. Clinical History NONE ON FILE Height: 65 inches Weight: 76.66 kg (169 lbs) BSA: 1.84 m^2 BMI: 28.12 kg/m^2 HR: 62 bpm BP: 147/81 mmHg Procedure Informed Consent Procedure consent form obtained. Anesthesia consent obtained. Airway assessment performed. LENORE procedure notes Moderate sedation by performing MD using 5 mg IV versed and 125 mcg IV fentanyl. . Procedure Medications - Versed 5 mg. - Fentanyl 125 mcg. Summary No significant valve disease detected. No evidence of vegetations. Sinus tachycardia during the exam. Signature Findings Rhythm/BP Sinus tachycardia during the exam. Left Ventricle Overall LV systolic function appears normal by available views. LV chamber size appears within normal limits by available views. Left Atrium LA size appears qualitatively within normal limits by available views. Right Ventricle Overall RV systolic function appears normal by available views. RV chamber size appears within normal limits by available views. Right Atrium RA size is normal. RA catheter is visualized . Atrial Septum The interatrial septum is well visualized. Normal interatrial septum by available views. Aortic Valve Normal AoV structure and function. There is no aortic regurgitation. Mitral Valve Normal MV structure and function. Trace mitral regurgitation. Tricuspid Valve Normal TV structure and function. Pulmonic Valve Normal PV structure and function. Aorta Aortic root size (SInus of Valsalva diameter) is normal . Proximal ascending aorta size is normal . Pericardium No significant pericardial effusion is visualized. IVC/SVC/PA/PV/Pleural The superior vena is partially visualized. An SVC catheter is visualized . Performing Organization Address City/[facility] Hospitalcode Phone Number [facility] POC-Glucose meter (01/04/2018 7:46 AM CDT) POC-Glucose Meter 100Comment: TESTED AT 70 - 110 mg/dL [address] [address] Specimen Blood Performing Organization Address [facility] Hospitalcoaz Phone Number [address] [address] [phone] [place] Blood culture (01/03/2018 10:23 PM CDT)Only the most recent of5 resultswithin the time period is included. Result No growth in 5 days [facility] Specimen Blood Performing Organization Address [facility] Hospitalcode Phone Number [address] [address] [place] ECHOCARDIOGRAM REPORT - SCAN (01/03/2018 3:11 PM CDT) Narrative Performed At 2D Echo W/O Doppler(No Doppler) (01/03/2018 9:43 AM CDT) Ejection Fraction [facility] Specimen Narrative Performed At Transthoracic Echocardiography Report (TTE) [facility] Demographics Patient NamePULVER, TIFFANIE Date of Study 01/03/2018 NANO Female Visit [id number] Room Number [id number] Number Date of 1980Referring RYAN Manriquez Physician STAN Age 37 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 Clinical History HGB 8.9 HCT 29.0 % No cardiac history in chart Height: 65 inches Weight: 76.66 kg (169 lbs) BSA: 1.84 m^2 BMI: 28.12 kg/m^2 HR: 77 bpm BP: 117/70 mmHg Summary 1. All of the LV segments contract normally LVEF by Moore's method of disk assessment is normal (60%) . 2. Grade 1 diastolic dysfunction (impaired relaxation and low-normal LA pressure). 3. Estimated peak systolic PA pressure is 40-45 mmHg . 4. The right ventricular chamber size and systolic function are within normal limits. Previous Study No prior studies available for comparison. Signature Findings Technical Quality: Technically adequate exam. Left Ventricle The left ventricle is chamber size (by vol index) is normal (male - LVED vol - 34-74ml/m2). No evidence of LV hypertrophy. Al l of the LV segments contract normally . Gl obal LV systolic function normal . LV EF by Moore's method of disk assessment is no rmal (60%) . Gr sue 1 diastolic dysfunction (impaired relaxation an d low-normal LA pressure). Left AtriumLA size is moderately enlarged . Right VentricleThe right ventricular chamber size and systolic fu nction are within normal limits. Right Atrium RA size is normal. Aortic Valve Normal AoV structure and function. Mitral Valve Mild MV leaflet thickening. Mi ld mitral regurgitation. Tricuspid ValveA trace of tricuspid regurgitation. Es timated peak systolic PA pressure is 40-45 mmHg . Pulmonic Valve PV is not well visualized; function appears normal by Doppler visualized. AortaAortic root size (Sinus of Valsalva diameter) is no rmal . PericardiumA trivial pericardial effusion is present . IVC/SVC/PA/PV/PleuralThe estimated RA pressure by IVC dynamics 11-15mmHg . Chambers/Structures Left Atrium LA Volume: 86.66 ml LA Area: 21.91 cm^2 LA Vol. Index: 47 ml/m^2 Left Ventricle LVIDd: 5.07 cm LVIDs: 3.59 cm LV Septum Diastolic: 1.01 cm LV PW Diastolic: 0.97 cmLV FS: 29.2 % LVEDV Moore's:133.02 ml LVESV Moore's:52.61 mlLVEDVI: 72 ml/m^2 LVEF Moore's: 60.5 %LVESV I: 29 ml/m^2 LVOT Diameter: 2.2 cm Doppler/Quantitative Measurements Mitral Valve MV Peak E-Wave: 1.05 m/sMV Peak A-Wave: 0.54 m/s E/A Ratio: 1.93 Peak Gradient: 4.37 mmHg MV Roman. Peak: Tissue Doppler E' Septal Velocity: 0.13 m/sE/E': 7.88 E' Lateral Velocity: 0.2 m/s Aortic Valve Peak Velocity: 1.46 m/sMean Velocity: 0.98 m/s Peak Gradient: 8.58 mmHg Mean Gradient: 4.41 mmHg AV Area (continuity): 3.27 cm^2 AV VTI: 29.62 cm AV DVI: 0.86 LVOT Peak Velocity: 1.2 m/sPeak Gradient: 5.8 mmHg Mean Velocity: 0.81 m/s Mean Gradient: 3.01 mmHg LVOT Diameter: 2.2 cm LVOT VTI: 25.49 cm LVOT Area: 3.8 cm^2 LVOT SV:96.85 ml LVOT CO: 7.46 l/min LVOT CI: 4.05 l/min/m^2 Tricuspid Valve TR Velocity: 2.61 m/s TR Gradient: 27.32 mmHg Procedure Note Interface, External Ris In - 01/03/2018 2:53 PM CDT Transthoracic Echocardiography Report (TTE) Demographics Patient Name TIFFANIE BARAKAT Date of Study 01/03/2018 NANO Gender Female Visit Number [id number] Race Room Number 7401 Number Date of 1980 Referring RYAN Manriquez Physician STAN Age 37 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 Clinical History HGB 8.9 HCT 29.0 % No cardiac history in chart Height: 65 inches Weight: 76.66 kg (169 lbs) BSA: 1.84 m^2 BMI: 28.12 kg/m^2 HR: 77 bpm BP: 117/70 mmHg Summary 1. All of the LV segments contract normally LVEF by Moore's method of disk assessment is normal (60%) . 2. Grade 1 diastolic dysfunction (impaired relaxation and low-normal LA pressure). 3. Estimated peak systolic PA pressure is 40-45 mmHg . 4. The right ventricular chamber size and systolic function are within normal limits. Previous Study No prior studies available for comparison. Signature Findings Technical Quality: Technically adequate exam. Left Ventricle The left ventricle is chamber size (by vol index) is normal (male - LVED vol - 34-74ml/m2). No evidence of LV hypertrophy. All of the LV segments contract normally . Global LV systolic function normal . LVEF by Moore's method of disk assessment is normal (60%) . Grade 1 diastolic dysfunction (impaired relaxation and low-normal LA pressure). Left Atrium LA size is moderately enlarged . Right Ventricle The right ventricular chamber size and systolic function are within normal limits. Right Atrium RA size is normal. Aortic Valve Normal AoV structure and function. Mitral Valve Mild MV leaflet thickening. Mild mitral regurgitation. Tricuspid Valve A trace of tricuspid regurgitation. Estimated peak systolic PA pressure is 40-45 mmHg . Pulmonic Valve PV is not well visualized; function appears normal by Doppler visualized. Aorta Aortic root size (Sinus of Valsalva diameter) is normal . Pericardium A trivial pericardial effusion is present . IVC/SVC/PA/PV/Pleural The estimated RA pressure by IVC dynamics 11-15mmHg . Chambers/Structures Left Atrium LA Volume: 86.66 ml LA Area: 21.91 cm^2 LA Vol. Index: 47 ml/m^2 Left Ventricle LVIDd: 5.07 cm LVIDs: 3.59 cm LV Septum Diastolic: 1.01 cm LV PW Diastolic: 0.97 cm LV FS: 29.2 % LVEDV Moore's:133.02 ml LVESV Moore's:52.61 ml LVEDVI: 72 ml/m^2 LVEF Moore's: 60.5 % LVESVI: 29 ml/m^2 LVOT Diameter: 2.2 cm Doppler/Quantitative Measurements Mitral Valve MV Peak E-Wave: 1.05 m/s MV Peak A-Wave: 0.54 m/s E/A Ratio: 1.93 Peak Gradient: 4.37 mmHg MV Roman. Peak: Tissue Doppler E' Septal Velocity: 0.13 m/s E/E': 7.88 E' Lateral Velocity: 0.2 m/s Aortic Valve Peak Velocity: 1.46 m/s Mean Velocity: 0.98 m/s Peak Gradient: 8.58 mmHg Mean Gradient: 4.41 mmHg AV Area (continuity): 3.27 cm^2 AV VTI: 29.62 cm AV DVI: 0.86 LVOT Peak Velocity: 1.2 m/s Peak Gradient: 5.8 mmHg Mean Velocity: 0.81 m/s Mean Gradient: 3.01 mmHg LVOT Diameter: 2.2 cm LVOT VTI: 25.49 cm LVOT Area: 3.8 cm^2 LVOT SV:96.85 ml LVOT CO: 7.46 l/min LVOT CI: 4.05 l/min/m^2 Tricuspid Valve TR Velocity: 2.61 m/s TR Gradient: 27.32 mmHg Performing Organization Address City/State/Zipcode Phone Number [facility] Lactic acid, venous, whole blood Daily (01/03/2018 4:18 AM CDT)Only the most recent of4 resultswithin the time period is included. Lactate, Venous 0.5 0.5 - 2.2 mmol/L [facility] Specimen Blood Narrative Performed At Effective 07/08/2015: Units/Reference Range [facility] Change New: 0.5-2.2 mmol/LPrevious: 5-20 mg/dL Performing Organization Address City/State/[facility] Hospitalcode Phone Number [facility] [address] [place] [address] [phone] chest for pulmonary embolus (01/02/2018 10:25 AM CDT) Specimen Narrative Performed At FINAL REPORT [employer] CT Chest PE Protocol dated 01/02/2018 Clinical information: Shortness of breath Technique: This exam was performed according to our departmental dose-optimization program, which includes automated exposure control, adjustment of the mA and/or kV according to patient size and/or use of interactive reconstruction technique. Precontrast axial images were obtained at pulmonary trunk level for the purpose of monitoring subsequent IV contrast. Postcontrast axial images of the chest were obtained from above the arch level to the lower chest at maximum enhancement of pulmonary artery. Delayed axial images of the entire chest were obtained subsequently. Coronal and sagittal reformations of the pulmonary arteries were performed. Comment: Heart is normal in size. Greater vessels are unremarkable. No filling detect is noted in the pulmonary trunk or pulmonary arteries. No adenopathy is noted in the mediastinum or perihilar region. Trachea and mainstem bronchi are patent. There is trace bilateral pleural effusion with dependent bibasilar subsegmental atelectasis. The rest of the lungs are clear. No nodular, mass lesion, or airspace disease is seen. Impression: 1. No pulmonary thromboembolism. 2. Trace bilateral pleural effusion and bibasilar subsegmental atelectasis. Signed: Ale Barreto MD Report Verified Date/Time:01/02/2018 10:22:37 Reading Location: [facility] B1 C013Y CT Body Reading Room Procedure Note Interface, External Ris In - 02/22/2018 3:41 PM [employer]AIL [employer] MANAGER FINAL REPORT CT Chest PE Protocol dated 01/02/2018 Clinical information: Shortness of breath Technique: This exam was performed according to our departmental dose-optimization program, which includes automated exposure control, adjustment of the mA and/or kV according to patient size and/or use of interactive reconstruction technique. Precontrast axial images were obtained at pulmonary trunk level for the purpose of monitoring subsequent IV contrast. Postcontrast axial images of the chest were obtained from above the arch level to the lower chest at maximum enhancement of pulmonary artery. Delayed axial images of the entire chest were obtained subsequently. Coronal and sagittal reformations of the pulmonary arteries were performed. Comment: Heart is normal in size. Greater vessels are unremarkable. No filling detect is noted in the pulmonary trunk or pulmonary arteries. No adenopathy is noted in the mediastinum or perihilar region. Trachea and mainstem bronchi are patent. There is trace bilateral pleural effusion with dependent bibasilar subsegmental atelectasis. The rest of the lungs are clear. No nodular, mass lesion, or airspace disease is seen. Impression: 1. No pulmonary thromboembolism. 2. Trace bilateral pleural effusion and bibasilar subsegmental atelectasis. Signed: Ale Barreto MD Report Verified Date/Time: 01/02/2018 10:22:37 Reading Location: [facility] B1 C013Y CT Body Reading Room Performing Organization Address City/State/Zipcode Phone Number [employer] R[facility] TRANSFUSION SERVICE REPORT - SCAN (01/01/2018 5:51 PM CDT) Narrative Performed At Procalcitonin (01/01/2018 3:41 PM CDT) Procalcitonin 2.31 (H) <0.05 ng/mL [facility] Specimen Blood Narrative Performed At SEPSIS RISK (ng/mL) [facility] Low:0.05-0.50 Intermediate: 0.51-2.00 High: >=2.01 Performing Organization Address City/State/Zipcode Phone Number [facility] [address] [place] [address] CENTER XR chest 1 view portable / bedside (01/01/2018 3:29 PM CDT) Specimen Narrative Performed At FINAL REPORT [facility] AP chest HISTORY: PICC placement COMPARISON: None IMPRESSION: Right arm PICC present with tip at mid SVC. Heart size upper limits of normal. Lungs clear. Signed: Elio Sanches MD Report Verified Date/Time:01/01/2018 16:20:41 Reading Location: [address] Radiology Reading Room Procedure Note Interface, External Ris In - 01/01/2018 5:20 PM CDT FINAL REPORT AP chest HISTORY: PICC placement COMPARISON: None IMPRESSION: Right arm PICC present with tip at mid SVC. Heart size upper limits of normal. Lungs clear. Signed: Elio Sanches MD Report Verified Date/Time: 01/01/2018 16:20:41 Reading Location: [address] Radiology Reading Room Performing Organization Address City/State/[facility] Hospitalcode Phone Number [employer] Venous doppler legs bilateral (01/01/2018 10:19 AM CDT) Ejection Fraction [facility] ECHO HEART[facility] Specimen Impressions Performed At Right Impression [facility] ECHO HEART[facility] 1. There is no deep venous obstruction in the common femoral, profunda femoral, femoral, popliteal, posterior tibial or peroneal veins. 2. There is no superficial venous obstruction in the great saphenous vein. Left Impression 1. There is no deep venous obstruction in the common femoral, profunda femoral, femoral, popliteal, posterior tibial or peroneal veins. 2. There is no superficial venous obstruction in the great saphenous vein. Conclusions Summary Venous duplex imaging and compression of the bilateral lower extremities were performed. The veins were adequately visualized. The bilateral venous systems were patent and compressible with no evidence of thrombus. The venous Doppler waveforms were phasic with respiration . Signature Velocities are measured in cm/s ; Diameters are measured in cm Narrative Performed At PV LAB - Lower Extremities DVT Study [facility] ECHO [facility] Demographics Patient NamePTIFFANIE DONGDate of Study01/01/2018 Age37 Visit [id number] Gender Female Date of Birth1980 Number Referring [facility] Room [id number] Physician Markell Marble Machine Operator Sissy Gonzales RN, Interpreting WILLY Melendez Meagan Alexander. RVT, ARS Procedure Type of Study: Veins: Lower Extremities DVT Study, VENOUS DOPPLER LEG, BILATERAL. Indications for Study:? DVT. Patient Status:Routine. Study Location:Portable. Technical Quality:Adequate visualization. Procedure Note Interface, External Ris In - 01/01/2018 9:23 PM CDT PV LAB - Lower Extremities DVT Study Demographics Patient Name TIFFANIE BARAKAT Date of Study 01/01/2018 Age 37 Visit Number [id number] Gender Female Date of 1980 Number Referring [facility] Room Number [id number] Physician Markell Marble Machine Operator Sissy Gonzales RN, Interpreting Vivienne Chun RVT Physician MD Heriberto Alexander. RVT, ARDMS Procedure Type of Study: Veins: Lower Extremities DVT Study, VENOUS DOPPLER LEG, BILATERAL. Indications for Study:? DVT. Patient Status:Routine. Study Location:Portable. Technical Quality:Adequate visualization. Impressions Right Impression 1. There is no deep venous obstruction in the common femoral, profunda femoral, femoral, popliteal, posterior tibial or peroneal veins. 2. There is no superficial venous obstruction in the great saphenous vein. Left Impression 1. There is no deep venous obstruction in the common femoral, profunda femoral, femoral, popliteal, posterior tibial or peroneal veins. 2. There is no superficial venous obstruction in the great saphenous vein. Conclusions Summary Venous duplex imaging and compression of the bilateral lower extremities were performed. The veins were adequately visualized. The bilateral venous systems were patent and compressible with no evidence of thrombus. The venous Doppler waveforms were phasic with respiration . Signature Velocities are measured in cm/s ; Diameters are measured in cm Performing Organization Address City/State/Zipcode Phone Number [facility] US Endovaginal (01/01/2018 6:17 AM CDT) Specimen Narrative Performed At FINAL REPORT [employer] Pelvic ultrasound dated 01/01/2018 Comment:Real-time transpelvic and transvaginal ultrasound were performed. Transvaginal ultrasound was performed. Evaluate adnexa and ovaries. The uterus measures 16.4 x 9.9 x 10.9 cm. Endometrial measures 3.4 cm in thickness. There is no increased flow in the endometrium. Both endometrium and myometrium are unremarkable. Right ovary measures 3.1 x 2.2 x 3.5 cm. Left ovary is not visualized. No mass lesion is seen in the adnexa.No free fluid is seen in the cul-de-sac. Impression: 1. uterus with thickened endometrium without increased vascular flow to suggest endometritis. 2. Unable to visualize the left ovary. Signed: Ale Barreto MD Report Verified Date/Time:01/01/2018 09:51:50 Reading Location: [address] Ultrasound Reading Room Procedure Note Interface, External Ris In - 01/01/2018 9:53 AM CDT FINAL REPORT Pelvic ultrasound dated 01/01/2018 Comment: Real-time transpelvic and transvaginal ultrasound were performed. Transvaginal ultrasound was performed. Evaluate adnexa and ovaries. The uterus measures 16.4 x 9.9 x 10.9 cm. Endometrial measures 3.4 cm in thickness. There is no increased flow in the endometrium. Both endometrium and myometrium are unremarkable. Right ovary measures 3.1 x 2.2 x 3.5 cm. Left ovary is not visualized. No mass lesion is seen in the adnexa. No free fluid is seen in the cul-de-sac. Impression: 1. uterus with thickened endometrium without increased vascular flow to suggest endometritis. 2. Unable to visualize the left ovary. Signed: Ale Barreto MD Report Verified Date/Time: 01/01/2018 09:51:50 Reading Location: [address] Ultrasound Reading Room Performing Organization Address City/State/Zipcode Phone Number [employer] US pelvis (01/01/2018 6:17 AM CDT) Specimen Narrative Performed At FINAL REPORT [employer] Pelvic ultrasound dated 01/01/2018 Comment:Real-time transpelvic and transvaginal ultrasound were performed. Transvaginal ultrasound was performed. Evaluate adnexa and ovaries. The uterus measures 16.4 x 9.9 x 10.9 cm. Endometrial measures 3.4 cm in thickness. There is no increased flow in the endometrium. Both endometrium and myometrium are unremarkable. Right ovary measures 3.1 x 2.2 x 3.5 cm. Left ovary is not visualized. No mass lesion is seen in the adnexa.No free fluid is seen in the cul-de-sac. Impression: 1. uterus with thickened endometrium without increased vascular flow to suggest endometritis. 2. Unable to visualize the left ovary. Signed: Ale Barreto MD Report Verified Date/Time:01/01/2018 09:51:50 Reading Location: [address] Ultrasound Reading Room Procedure Note Interface, External Ris In - 01/01/2018 9:53 AM CDT FINAL REPORT Pelvic ultrasound dated 01/01/2018 Comment: Real-time transpelvic and transvaginal ultrasound were performed. Transvaginal ultrasound was performed. Evaluate adnexa and ovaries. The uterus measures 16.4 x 9.9 x 10.9 cm. Endometrial measures 3.4 cm in thickness. There is no increased flow in the endometrium. Both endometrium and myometrium are unremarkable. Right ovary measures 3.1 x 2.2 x 3.5 cm. Left ovary is not visualized. No mass lesion is seen in the adnexa. No free fluid is seen in the cul-de-sac. Impression: 1. uterus with thickened endometrium without increased vascular flow to suggest endometritis. 2. Unable to visualize the left ovary. Signed: Ale Barreto MD Report Verified Date/Time: 01/01/2018 09:51:50 Reading Location: [address] Ultrasound Reading Room Performing Organization Address City/State/Zipcode Phone Number [facility] Hepatic function panel (01/01/2018 3:32 AM CDT) Protein, Total 5.1 (L) 6.0 - 8.3 gm/dL [facility] Albumin 2.5 (L) 3.5 - 5.0 g/dL [facility] Total Bilirubin 0.7 0.2 - 1.2 mg/dL [facility] Bilirubin, Direct 0.3 0.1 - 0.5 mg/dL [facility] Alkaline Phosphatase 74 40 - 150 U/L [facility] AST 31 5 - 34 U/L [facility] ALT 37 6 - 55 U/L [facility] Specimen Blood Performing Organization Address City/State/Zipcode Phone Number [facility] [address] [place] [address] [phone] CENTER Uterus culture + gram stain (12/31/2017 8:19 PM CDT) Result 2+ Beta-hemolytic streptococcus [facility] group B, by serological [facility] grouping (A) Result 3+ Enterococcus species (A) [facility] Result 1+ Leona albicans (A) [facility] Gram Stain Result 2+ WBCs [facility] Gram Stain Result 3+ gram positive cocci in pairs [facility] Gram Stain Result 1+ gram positive cocci in [facility] chains [facility] Gram Stain Result 1+ gram positive coccobacilli [facility] Gram Stain Result 1+ gram positive rods [facility] Specimen Other - Vaginal Mucosa Organism Antibiotic Method Susceptibility Beta-hemolytic streptococcus group B, by Ceftriaxone 0.125: Susceptible serological grouping Beta-hemolytic streptococcus group B, by Clindamycin 0.125: Susceptible serological grouping Beta-hemolytic streptococcus group B, by Erythromycin 0.094: Susceptible serological grouping Beta-hemolytic streptococcus group B, by Levofloxacin 0.5: Susceptible serological grouping Beta-hemolytic streptococcus group B, by Linezolid 2: Susceptible serological grouping Beta-hemolytic streptococcus group B, by Penicillin G 0.12: Susceptible serological grouping Comment: This is a corrected result. Previous result was No Interpretations Established (0.19) on 01/04/2018 at 1009 CDT Beta-hemolytic streptococcus group B, by Vancomycin 1.0: Susceptible serological grouping Beta-hemolytic streptococcus group B, by Penicillin G DISK DIFFUSION Susceptible serological grouping Enterococcus species Ampicillin <=2: Susceptible Enterococcus species Linezolid 2: Susceptible Enterococcus species Vancomycin 2: Susceptible Performing Organization Address City/State/Zipcode Phone Number [facility] [address] [place] [address] CENTER Blood Culture Panel([employer]) (12/31/2017 2:13 AM CDT) LISTERIA MONOCYTOGENES Not detected Not detected [facility] STAPHYLOCOCCUS Not detected Not detected [facility] STAPHYLOCOCCUS AUREUS Not detected Not detected [facility] Streptococcus Detected (A) Not detected [facility] Comment: [facility] First line therapy: Vancomycin De-escalate based on susceptibilities Reference Range: Not Detected STREPTOCOCCUS AGALACTIAE Detected (A) Not detected [facility] (GROUP B) Comment: [facility] First line therapy: Ceftriaxone Reference Range: Not Detected STREPTOCOCCUS PNEUMONIAE Not detected Not detected [facility] Streptococcus pyogenes (Group Not detected Not detected [facility] ACINETOBACTER BAUMANNII Not detected Not detected [facility] HAEMOPHILUS INFLUENZAE Not detected Not detected [facility] NEISSERIA MENINGITIDIS Not detected Not detected [facility] ENTEROBACTERIACEAE Not detected Not detected [facility] ENTEROBACTER CLOACOE COMPLEX Not detected Not detected [facility] KLEBSIELLA OXYTOCA Not detected Not detected [facility] KLEBSIELLA PNEUMONIAE Not detected Not detected [facility] PROTEUS Not detected Not detected [facility] SERRATIA MARCESCENS Not detected Not detected [facility] LEONA ALBICANS Not detected Not detected [facility] LEONA GLABRATA Not detected Not detected [facility] LEONA KRUSEI Not detected Not detected [facility] [place] PARAPSILOSIS Not detected Not detected [facility] [place] TROPICALIS Not detected Not detected [facility] ESCHERICHIA COLI Not detected Not detected [facility] METHICILLIN-RESISTANCE GENE Not detected [facility] VANCOMYCIN-RESISTANCE GENE Not detected [facility] CARBAPENEM-RESISTANCE GENE Not detected [facility] ENTEROCOCCUS Not detected Not detected [facility] PSEUDOMONAS AERUGINOSA Not detected Not detected [facility] Specimen Blood Narrative Performed At Other bacteria and resistance markers not [facility] targeted by this PCR panel cannot be excluded; therefore clinical correlation and follow up of serology, culture results, and other molecular studies is required. The results are not intended to be used as the sole means for clinical diagnosis or patient management decisions. This sample was tested at the [facility] using the [employer] Blood Culture ID Panel. It is FDA cleared and has been verified and approved by the [facility] for clinical use. This laboratory is CLIA-certified and [employer] [place] [employer] ([employer])-accredited to perform high complexity testing. Performing Organization Address City/State/Zipcode Phone Number [facility] [address] [place] [address] CENTER Urinalysis w/Microscopic + Reflex to Culture (12/31/2017 2:07 AM CDT) Color, UA Yellow [facility] Clarity, UA Hazy [facility] Specific [place], UA 1.038 (H) 1.001 - 1.035 [facility] pH, UA 6.0 5.0 - 8.0 [facility] Protein, UA 30 mg/dL (A) Negative [facility] Glucose, UA Negative Negative [facility] Ketones, UA 150 mg/dL (A) Negative [facility] Bilirubin, UA Negative Negative [facility] Blood, UA Negative Negative [facility] Nitrite, UA Negative Negative [facility] Leukocytes, UA Negative Negative [facility] Urobilinogen, UA 0.2 0.2 - 1.0 mg/dL [facility] RBC, UA 1 /HPF [facility] WBC, UA 5 /HPF [facility] Mucus Rare [facility] Squam Epithel, UA <1 /HPF [facility] Specimen Source [facility] Specimen Urine Performing Organization Address City/State/[facility] Phone Number [address] [address] [phone] CENTER Type and screen, automated (12/31/2017 1:50 AM CDT) ABO/RH AUTOMATED (BEAKER) A POSITIVE [facility] Ab Scrn NEGATIVE [facility] Specimen Blood Performing Organization Address City/[facility] Phone Number [address] [address] Screen, urine (12/30/2017 7:52 PM CDT) Preg Test, Ur Positive [facility] Specimen Urine Performing Organization Address City/[facility] Phone Number [address] [address] CENTER aPTT (12/30/2017 7:52 PM CDT) PTT 30.8 22.5 - 36.0 seconds [facility] Specimen Blood Performing Organization Address City/[facility]/Zipcode Phone Number [address] [address] [phone] CENTER Prothrombin time/INR (12/30/2017 7:52 PM CDT) Protime 14.2 11.7 - 14.7 seconds [facility] INR 1.1 <=5.[address] [facility] Specimen Blood Narrative Performed At RECOMMENDED COUMADIN/WARFARIN INR THERAPY [facility] RANGES STANDARD DOSE: 2.0 - 3.0 Includes: PROPHYLAXIS for venous thrombosis, systemic embolization; TREATMENT for venous thrombosis and/or pulmonary embolus. HIGH RISK: Target INR is 2.5-3.5 for patients with mechanical heart valves. Performing Organization Address City/State/Zipcode Phone Number [address] [address] [phone] CENTER after 09/14/2017 Insurance Payer Benefit Plan / Group Subscriber ID Type Phone Address [employer] - [employer] PPO xxxxxxxxx PPO Advance Directives For more information, please contact:[address] [phone] Code Status Date Activated Date Inactivated Comments Full Code 12/30/2017 6:58 PM This code status was determined by: Patient
--- OUTSIDE RECORDS SUMMARY | 2018-09-15 22:55 | XMS REPORT ---
:1980 [facility] Address [address] [place] [address] Care Team Providers Name Role Phone NATANAELRONYESMER TERANTEZGUANAKITO LEYVA Unavailable Unavailable Problems This patient has no known problems. Allergies, Adverse Reactions, Alerts This patient has no known allergies or adverse reactions. Medications This patient has no known medications. Results Test Description Test Time Test Comments Text Results Atomic Results Result Comments MR, SPINE, LUMBAR, WITHOUT 2018-03-26 12:28:00 FINAL REPORT CONTRAST MR, SPINE, LUMBAR, WITHOUT CONTRAST INDICATION: Abnormal xray, lumbar spine, bone destructionfollow up MRI 01/05 COMPARISON: January 05, 2018 [...] film radiography recommended. Signed: JR Walter Robert MDReport Verified Date/Time: 03/26/2018 12:28:18 Reading Location: [facility] B1 [id number] Neuro Reading Room D CULTURE 2018-01-09 05:01:00 Test Item Value Reference Range Comments CULTURE (BEAKER) (test jbfq=4893) No growth in 5 days BLOOD [id number] 17:01:00 Test Item Value Reference Range Comments CULTURE (BEAKER) (test vhur=6035) No growth in 5 days BASIC METABOLIC [id number] 05:29:00 Test Item Value Reference Range Comments SODIUM (BEAKER) (test 142 meq/L 136-145 yavh=828) POTASSIUM (BEAKER) (test 3.6 meq/L 3.5-5.1 shoy=673) CHLORIDE (BEAKER) (test 108 meq/L 98-107 fksd=841) CO2 (BEAKER) (test 24 meq/L 22-29 dvsf=402) BLOOD UREA NITROGEN 12 mg/dL 7-21 (BEAKER) (test lhkl=496) CREATININE (BEAKER) (test 0.54 mg/dL 0.57-1.25 iwem=720) GLUCOSE RANDOM (BEAKER) 89 mg/dL 70-105 (test kztr=078) CALCIUM (BEAKER) (test 8.6 mg/dL 8.4-10.2 rueu=114) EGFR (BEAKER) (test 128 mL/min/1.73 sq m ESTIMATED GFR IS NOT rxvu=3628) ACCURATE CREATININE CLEARANCE IN PREDICTING GLOMERULAR FILTRATION RATE. ESTIMATED GFR IS NOT APPLICABLE FOR DIALYSIS PATIENTS. UTERUS CULTURE + GRAM [id number] 15:10:00 Test Item Value Reference Range Comments CULTURE (BEAKER) BETA HEMOLYTIC 2+ Beta-hemolytic (test zjgl=8074) STREPTOCOCCUS GROUP B streptococcus group B, by serological grouping Penicillin G (test Susceptible >=24 , No code=3) Interpretations Established <24 CULTURE (BEAKER) 3+ Enterococcus (test jkzo=1030) species CULTURE (BEAKER) ENTEROCOCCUS SPECIES 1+ Leona albicans (test hibf=4436) Ampicillin (test code=26) Linezolid (test code=40) Vancomycin (test code=13) GRAM STAIN RESULT 2+ WBCs (BEAKER) (test embf=6207) GRAM STAIN RESULT 3+ gram positive cocci (BEAKER) (test in pairs yhat=874525) GRAM STAIN RESULT 1+ gram positive cocci (BEAKER) (test in chains uwpc=091380) GRAM STAIN RESULT 1+ gram positive (BEAKER) (test coccobacilli oszk=771326) GRAM STAIN RESULT 1+ gram positive rods (BEAKER) (test shdb=763379) BASIC METABOLIC [id number] 06:27:00 Test Item Value Reference Range Comments SODIUM (BEAKER) (test 142 meq/L 136-145 yuyl=572) POTASSIUM (BEAKER) (test 3.7 meq/L 3.5-5.1 prrh=473) CHLORIDE (BEAKER) (test 110 meq/L 98-107 sxza=640) CO2 (BEAKER) (test 24 meq/L 22-29 ydqq=829) BLOOD UREA NITROGEN 12 mg/dL 7-21 (BEAKER) (test oqlm=717) CREATININE (BEAKER) (test 0.54 mg/dL 0.57-1.25 xybl=383) GLUCOSE RANDOM (BEAKER) 90 mg/dL 70-105 (test lsvl=550) CALCIUM (BEAKER) (test 8.7 mg/dL 8.4-10.2 otnz=232) EGFR (BEAKER) (test 128 mL/min/1.73 sq m ESTIMATED GFR IS NOT mcoo=7219) ACCURATE CREATININE CLEARANCE IN PREDICTING GLOMERULAR FILTRATION RATE. ESTIMATED GFR IS NOT APPLICABLE FOR DIALYSIS PATIENTS. BLOOD [id number] 00:00:00 Test Item Value Reference Range Comments CULTURE (BEAKER) (test nsoa=2885) No growth in 5 days CBC W/PLT COUNT & AUTO [id number] 13:42:00 Test Item Value Reference Range Comments WHITE BLOOD CELL COUNT (BEAKER) (test cuwj=616) 10.3 K/ L 3.5-10.5 RED BLOOD CELL COUNT (BEAKER) (test osbq=231) 3.39 M/ L 3.93-5.22 HEMOGLOBIN (BEAKER) (test uotl=728) 9.6 GM/DL 11.2-15.7 HEMATOCRIT (BEAKER) (test jlsd=735) 31.1 % 34.1-44.9 MEAN CORPUSCULAR VOLUME (BEAKER) (test dtfg=876) 91.7 fL 79.4-94.8 MEAN CORPUSCULAR HEMOGLOBIN (BEAKER) (test 28.3 pg 25.6-32.2 lwav=733) MEAN CORPUSCULAR HEMOGLOBIN CONC (BEAKER) (test 30.9 GM/DL 32.2-35.5 mnfp=616) RED CELL DISTRIBUTION WIDTH (BEAKER) (test 13.6 % 11.7-14.4 yiec=282) PLATELET COUNT (BEAKER) (test uque=772) 316 K/CU MM 150-450 MEAN PLATELET VOLUME (BEAKER) (test rsxd=033) 9.6 fL 9.4-12.3 NUCLEATED RED BLOOD CELLS (BEAKER) (test 0 /100 WBC 0-0 vtum=216) (CELLAVISION MANUAL DIFF)2018-01-06 13:42:00 Test Item Value Reference Range Comments NEUTROPHILS - REL (CELLAVISION)(BEAKER) (test 79 % sdee=0968) LYMPHOCYTES - REL (CELLAVISION)(BEAKER) (test 10 % hrbc=3649) MONOCYTES - REL (CELLAVISION)(BEAKER) (test 4 % pklp=6302) EOSINOPHILS - REL (CELLAVISION)(BEAKER) (test 3 % oitx=1833) MYELOCYTES - REL (CELLAVISION)(BEAKER) (test 3 % 0-0 fvgt=1765) BANDS - REL (CELLAVISION)(BEAKER) (test vdjv=7147) 1 % 0-10 NEUTROPHILS - ABS (CELLAVISION)(BEAKER) (test 8.14 K/ul 1.56-6.13 gaef=0067) LYMPHOCYTES - ABS (CELLAVISION)(BEAKER) (test 1.03 K/ul 1.18-3.74 yvaz=0819) MONOCYTES - ABS (CELLAVISION)(BEAKER) (test 0.41 K/uL 0.24-0.36 avai=1272) EOSINOPHILS - ABS (CELLAVISION)(BEAKER) (test 0.31 K/uL 0.04-0.36 mhft=9954) MYELOCYTES-ABS (CELLAVISION)(BEAKER) (test 0.31 K/uL 0.00-0.00 zkyb=1438) BANDS - ABS (CELLAVISION)(BEAKER) (test mxcu=1168) 0.10 K/uL 0.00-0.80 TOTAL COUNTED (BEAKER) (test ptts=2985) 100 WBC MORPHOLOGY (BEAKER) (test yroh=843) Normal GIANT PLATELETS (BEAKER) (test axyi=259) Present LARGE PLT(BEAKER) (test behi=3946) Present HYPOCHROMIA (BEAKER) (test tqqa=829) 1+ few ANISOCYTOSIS (BEAKER) (test jmza=195) 1+ few MACROCYTES (BEAKER) (test ghha=106) 1+ few POIKILOCYTES (BEAKER) (test xyrl=596) 1+ few ACANTHOCYTES (BEAKER) (test ixln=283) 1+ few ARTIFACT (CELLAVISION)(BEAKER) (test vnxx=1011) Present PLATELET CONCENTRATION (CELLAVISION)(BEAKER) (test Adequate pmxd=4566) Received comment: User comments: Slide comments:COMPREHENSIVE METABOLIC [id number] 07:51:00 Test Item Value Reference Range Comments TOTAL PROTEIN (BEAKER) 5.5 gm/dL 6.0-8.3 (test zbap=898) ALBUMIN (BEAKER) (test 2.6 g/dL 3.5-5.0 nhmv=4323) ALKALINE PHOSPHATASE 123 U/L 40-150 (BEAKER) (test bxna=780) BILIRUBIN TOTAL (BEAKER) 0.3 mg/dL 0.2-1.2 (test ctbo=647) SODIUM (BEAKER) (test 141 meq/L 136-145 nzat=909) POTASSIUM (BEAKER) (test 3.6 meq/L 3.5-5.1 hmum=899) CHLORIDE (BEAKER) (test 108 meq/L 98-107 strb=275) CO2 (BEAKER) (test 26 meq/L 22-29 bdlf=730) BLOOD UREA NITROGEN 9 mg/dL 7-21 (BEAKER) (test nchd=779) CREATININE (BEAKER) (test 0.57 mg/dL 0.57-1.25 mjnw=014) GLUCOSE RANDOM (BEAKER) 87 mg/dL 70-105 (test lcjl=931) CALCIUM (BEAKER) (test 8.4 mg/dL 8.4-10.2 srpa=213) AST (SGOT) (BEAKER) (test 30 U/L 5-34 zkgb=204) ALT (SGPT) (BEAKER) (test 27 U/L 6-55 blmt=041) EGFR (BEAKER) (test 121 mL/min/1.73 sq ESTIMATED GFR IS NOT wcrh=1780) m ACCURATE CREATININE CLEARANCE IN PREDICTING GLOMERULAR FILTRATION RATE. ESTIMATED GFR IS NOT APPLICABLE FOR DIALYSIS PATIENTS. BLOOD [id number] 05:05:00 Test Item Value Reference Range Comments CULTURE (MERYAKER) From Anaerobic Bottle Only (test luhq=7338) Coagulase negative Staphylococcus GRAM STAIN RESULT From anaerobic bottle This is an appended report. (KLARISSA) (test only: gram positive These results have been ftqo=7762) cocci in clusters appended to a previously preliminary verified report. MR, SPINE, LUMBAR, [id number] 13:31:00Patient will need the MRI done under general anesthesiaFINAL REPORT MR Lumbar spine with and without [...] stenosis. The other lumbar disc levels are unremarkable.There is maintenance of the lumbar curvature and alignment. The lumbar vertebral body heights are maintained. The lumbar marrow signal is preserved. The conus medullaris terminates at T12-L1 and is unremarkable appearing. There are symmetrical widening of the sacroiliac joints with bilateral effusions. There is symmetrical T1 signal hypointensity along the sacroiliac margins compatible with osteitiscondensans. The sacroiliac joint effusions are associated with [...] The findings were discussed with Dr. MIRYAM BELKYS BARTSCH at the time of dictation. Signed: Petra Reno MDReport Verified Date/Time: 01/05/2018 13:31:51 Reading Location: [address] Neuro Reading Room CBC W/PLT COUNT & AUTO [id number] 07:53:00 Test Item Value Reference Range Comments WHITE BLOOD CELL COUNT (BEAKER) (test lfxp=901) 12.7 K/ L 3.5-10.5 RED BLOOD CELL COUNT (BEAKER) (test sxnm=422) 3.62 M/ L 3.93-5.22 HEMOGLOBIN (BEAKER) (test ypub=610) 10.4 GM/DL 11.2-15.7 HEMATOCRIT (BEAKER) (test ttoz=020) 32.6 % 34.1-44.9 MEAN CORPUSCULAR VOLUME (BEAKER) (test ljio=444) 90.1 fL 79.4-94.8 MEAN CORPUSCULAR HEMOGLOBIN (BEAKER) (test 28.7 pg 25.6-32.2 efnb=965) MEAN CORPUSCULAR HEMOGLOBIN CONC (BEAKER) (test 31.9 GM/DL 32.2-35.5 pnri=321) RED CELL DISTRIBUTION WIDTH (BEAKER) (test 13.5 % 11.7-14.4 kxpj=701) PLATELET COUNT (BEAKER) (test fadr=652) 338 K/CU MM 150-450 MEAN PLATELET VOLUME (BEAKER) (test xqkn=575) 9.5 fL 9.4-12.3 NUCLEATED RED BLOOD CELLS (BEAKER) (test 0 /100 WBC 0-0 gifs=146) (CELLAVISION MANUAL DIFF)2018-01-05 07:53:00 Test Item Value Reference Range Comments NEUTROPHILS - REL (CELLAVISION)(BEAKER) (test 75 % ords=4160) LYMPHOCYTES - REL (CELLAVISION)(BEAKER) (test 19 % mesu=1081) MONOCYTES - REL (CELLAVISION)(BEAKER) (test 1 % cymw=9949) METAMYELOCYTES - REL (CELLAVISION)(BEAKER) (test 1 % 0-0 slba=8539) MYELOCYTES - REL (CELLAVISION)(BEAKER) (test 2 % 0-0 vtpa=3427) BANDS - REL (CELLAVISION)(BEAKER) (test tzdu=9891) 2 % 0-10 NEUTROPHILS - ABS (CELLAVISION)(BEAKER) (test 9.53 K/ul 1.56-6.13 ghvc=0012) LYMPHOCYTES - ABS (CELLAVISION)(BEAKER) (test 2.41 K/ul 1.18-3.74 khde=5486) MONOCYTES - ABS (CELLAVISION)(BEAKER) (test 0.13 K/uL 0.24-0.36 gmve=5378) METAMYELOCYTES - ABS (CELLAVISION)(BEAKER) (test 0.13 K/uL 0.00-0.00 hsxk=5108) MYELOCYTES-ABS (CELLAVISION)(BEAKER) (test 0.25 K/uL 0.00-0.00 gkok=2433) BANDS - ABS (CELLAVISION)(BEAKER) (test fuzt=9607) 0.25 K/uL 0.00-0.80 TOTAL COUNTED (BEAKER) (test xutt=6305) 100 WBC MORPHOLOGY (BEAKER) (test pbdk=791) Normal PLT MORPHOLOGY (BEAKER) (test qtky=428) Normal ANISOCYTOSIS (BEAKER) (test rlgg=207) 1+ few MICROCYTES (BEAKER) (test nsxl=211) 1+ few ARTIFACT (CELLAVISION)(BEAKER) (test latl=0553) Present PLATELET CONCENTRATION (CELLAVISION)(BEAKER) (test Adequate mera=5178) Received comment: User comments: Slide comments:BASIC METABOLIC [id number] 07:23:00 Test Item Value Reference Range Comments SODIUM (BEAKER) (test 142 meq/L 136-145 zkub=620) POTASSIUM (BEAKER) (test 3.7 meq/L 3.5-5.1 nphy=174) CHLORIDE (BEAKER) (test 109 meq/L 98-107 ztgh=746) CO2 (BEAKER) (test 25 meq/L 22-29 anfa=174) BLOOD UREA NITROGEN 8 mg/dL 7-21 (BEAKER) (test ahfm=097) CREATININE (BEAKER) (test 0.52 mg/dL 0.57-1.25 nafc=518) GLUCOSE RANDOM (BEAKER) 92 mg/dL 70-105 (test slvd=668) CALCIUM (BEAKER) (test 9.0 mg/dL 8.4-10.2 cwpl=376) EGFR (BEAKER) (test 134 mL/min/1.73 sq m ESTIMATED GFR IS NOT tibh=2066) ACCURATE CREATININE CLEARANCE IN PREDICTING GLOMERULAR FILTRATION RATE. ESTIMATED GFR IS NOT APPLICABLE FOR DIALYSIS PATIENTS. BLOOD [id number] 14:44:00 Test Item Value Reference Range Comments CULTURE (BEAKER) BETA HEMOLYTIC From Aerobic And (test hace=6332) STREPTOCOCCUS GROUP B Anaerobic Bottles Beta-hemolytic streptococcus group B, by serological grouping Ceftriaxone (test code=52) Clindamycin (test code=10) Erythromycin (test code=4) Levofloxacin (test code=22) Linezolid (test code=40) Penicillin G (test code=3) Vancomycin (test code=13) Penicillin G (test Susceptible 0-0.12 , No code=3) Interpretations Established <0 or >. Vancomycin (test Susceptible 0-1 , No code=13) Interpretations Established <0 or >1 GRAM STAIN RESULT From aerobic and (BEAKER) (test anaerobic bottles: lcee=0483) gram positive cocci in chains and pairs POCT-GLUCOSE [id number] 07:59:00 Test Item Value Reference Range Comments POC-GLUCOSE METER (BEAKER) 100 mg/dL 70-110 TESTED AT [facility] [address] [facility] (test fycj=9160) [facility] [address] BASIC METABOLIC [id number] 06:23:00 Test Item Value Reference Range Comments SODIUM (BEAKER) (test 142 meq/L 136-145 ynrc=768) POTASSIUM (BEAKER) (test 3.6 meq/L 3.5-5.1 goow=417) CHLORIDE (BEAKER) (test 109 meq/L 98-107 ilvx=411) CO2 (BEAKER) (test 25 meq/L 22-29 mada=240) BLOOD UREA NITROGEN 7 mg/dL 7-21 (BEAKER) (test zjdw=378) CREATININE (BEAKER) (test 0.49 mg/dL 0.57-1.25 mzyr=458) GLUCOSE RANDOM (BEAKER) 93 mg/dL 70-105 (test ikru=190) CALCIUM (BEAKER) (test 8.5 mg/dL 8.4-10.2 uadc=282) EGFR (BEAKER) (test 144 mL/min/1.73 sq m ESTIMATED GFR IS NOT kyqp=4716) ACCURATE CREATININE CLEARANCE IN PREDICTING GLOMERULAR FILTRATION RATE. ESTIMATED GFR IS NOT APPLICABLE FOR DIALYSIS PATIENTS. CBC W/PLT COUNT & AUTO [id number] 05:28:00 Test Item Value Reference Range Comments WHITE BLOOD CELL COUNT (BEAKER) (test gttq=706) 10.4 K/ L 3.5-10.5 RED BLOOD CELL COUNT (BEAKER) (test xgyk=744) 3.27 M/ L 3.93-5.22 HEMOGLOBIN (BEAKER) (test ykpp=851) 9.2 GM/DL 11.2-15.7 HEMATOCRIT (BEAKER) (test hpxh=882) 29.3 % 34.1-44.9 MEAN CORPUSCULAR VOLUME (BEAKER) (test yvxs=286) 89.6 fL 79.4-94.8 MEAN CORPUSCULAR HEMOGLOBIN (BEAKER) (test 28.1 pg 25.6-32.2 evot=525) MEAN CORPUSCULAR HEMOGLOBIN CONC (BEAKER) (test 31.4 GM/DL 32.2-35.5 hbhd=111) RED CELL DISTRIBUTION WIDTH (BEAKER) (test 13.4 % 11.7-14.4 vwxp=260) PLATELET COUNT (BEAKER) (test hlmm=811) 247 K/CU MM 150-450 MEAN PLATELET VOLUME (BEAKER) (test tnnk=408) 9.5 fL 9.4-12.3 NUCLEATED RED BLOOD CELLS (BEAKER) (test 0 /100 WBC 0-0 nxba=143) NEUTROPHILS RELATIVE PERCENT (BEAKER) (test 72 % ehwj=231) LYMPHOCYTES RELATIVE PERCENT (BEAKER) (test 15 % gngo=852) MONOCYTES RELATIVE PERCENT (BEAKER) (test 7 % eyvx=135) EOSINOPHILS RELATIVE PERCENT (BEAKER) (test 1 % fucj=412) BASOPHILS RELATIVE PERCENT (BEAKER) (test 1 % ssgd=571) NEUTROPHILS ABSOLUTE COUNT (BEAKER) (test 7.44 K/ L 1.56-6.13 wtsc=685) LYMPHOCYTES ABSOLUTE COUNT (BEAKER) (test 1.58 K/ L 1.18-3.74 paop=348) MONOCYTES ABSOLUTE COUNT (BEAKER) (test 0.68 K/ L 0.24-0.36 ugum=515) EOSINOPHILS ABSOLUTE COUNT (BEAKER) (test 0.12 K/ L 0.04-0.36 mset=791) BASOPHILS ABSOLUTE COUNT (BEAKER) (test 0.06 K/ L 0.01-0.08 iwhz=501) IMMATURE GRANULOCYTES-RELATIVE PERCENT (BEAKER) 5 % 0-1 (test jlzc=0469) CBC W/PLT COUNT & AUTO [id number] 05:14:00 Test Item Value Reference Range Comments WHITE BLOOD CELL COUNT (BEAKER) (test xnqt=832) 10.7 K/ L 3.5-10.5 RED BLOOD CELL COUNT (BEAKER) (test syui=267) 3.15 M/ L 3.93-5.22 HEMOGLOBIN (BEAKER) (test wsqx=522) 8.9 GM/DL 11.2-15.7 HEMATOCRIT (BEAKER) (test qfuv=217) 28.0 % 34.1-44.9 MEAN CORPUSCULAR VOLUME (BEAKER) (test jecw=139) 88.9 fL 79.4-94.8 MEAN CORPUSCULAR HEMOGLOBIN (BEAKER) (test 28.3 pg 25.6-32.2 zsuh=805) MEAN CORPUSCULAR HEMOGLOBIN CONC (BEAKER) (test 31.8 GM/DL 32.2-35.5 bvbt=429) RED CELL DISTRIBUTION WIDTH (BEAKER) (test 13.4 % 11.7-14.4 qilh=846) PLATELET COUNT (BEAKER) (test fqzz=493) 181 K/CU MM 150-450 MEAN PLATELET VOLUME (BEAKER) (test cpvb=483) 9.5 fL 9.4-12.3 NUCLEATED RED BLOOD CELLS (BEAKER) (test 0 /100 WBC 0-0 vmaz=356) NEUTROPHILS RELATIVE PERCENT (BEAKER) (test 79 % axcu=237) LYMPHOCYTES RELATIVE PERCENT (BEAKER) (test 11 % vahp=076) MONOCYTES RELATIVE PERCENT (BEAKER) (test 7 % kcea=812) EOSINOPHILS RELATIVE PERCENT (BEAKER) (test 1 % dyeq=542) BASOPHILS RELATIVE PERCENT (BEAKER) (test 0 % aybi=268) NEUTROPHILS ABSOLUTE COUNT (BEAKER) (test 8.49 K/ L 1.56-6.13 sxtv=422) LYMPHOCYTES ABSOLUTE COUNT (BEAKER) (test 1.14 K/ L 1.18-3.74 gvqy=141) MONOCYTES ABSOLUTE COUNT (BEAKER) (test 0.75 K/ L 0.24-0.36 hwup=739) EOSINOPHILS ABSOLUTE COUNT (BEAKER) (test 0.07 K/ L 0.04-0.36 rhjt=474) BASOPHILS ABSOLUTE COUNT (BEAKER) (test 0.03 K/ L 0.01-0.08 azha=332) IMMATURE GRANULOCYTES-RELATIVE PERCENT (BEAKER) 2 % 0-1 (test wkdi=1672) BASIC METABOLIC [id number] 04:59:00 Test Item Value Reference Range Comments SODIUM (BEAKER) (test 138 meq/L 136-145 abuz=434) POTASSIUM (BEAKER) (test 3.7 meq/L 3.5-5.1 bzwi=111) CHLORIDE (BEAKER) (test 107 meq/L 98-107 ywho=609) CO2 (BEAKER) (test 24 meq/L 22-29 rxnx=857) BLOOD UREA NITROGEN 6 mg/dL 7-21 (BEAKER) (test rmpj=033) CREATININE (BEAKER) (test 0.48 mg/dL 0.57-1.25 qtbb=813) GLUCOSE RANDOM (BEAKER) 93 mg/dL 70-105 (test suqp=054) CALCIUM (BEAKER) (test 8.5 mg/dL 8.4-10.2 zopx=952) EGFR (BEAKER) (test 147 mL/min/1.73 sq m ESTIMATED GFR IS NOT rwed=4223) ACCURATE CREATININE CLEARANCE IN PREDICTING GLOMERULAR FILTRATION RATE. ESTIMATED GFR IS NOT APPLICABLE FOR DIALYSIS PATIENTS. LACTIC ACID, VENOUS, WHOLE [id number] 04:46:00 Test Item Value Reference Range Comments LACTATE BLOOD VENOUS (2) (BEAKER) (test 0.5 mmol/L 0.5-2.2 epor=4020) Effective 07/08/2015: Units/Reference Range ChangeNew: 0.5-2.2 mmol/L Previous: 5 -20 mg/dLCT, CHEST WITH IV CONTRAST- PE TEST [id number] 10:22:00FINAL REPORT CT Chest PE Protocol dated 01/02/2018 Clinical information: Shortness of breath Technique: This exam was performed according to our departmental dose-optimization program, which includes automated exposure control, adjustment of the mA and/or kV according to patient size and/ or use of interactive reconstruction technique. Precontrast axial images were obtained atpulmonary trunk level for the purpose of monitoring [...] disease is seen. Impression: 1. No pulmonary thromboembolism.2. Trace bilateral pleural effusion and bibasilar subsegmental atelectasis. Signed: [facility] Verified Date/Time: 01/02/2018 10:22:37 Reading Location: [address] Body Reading Room CBC W/PLT COUNT & AUTO [id number] 05:11:00 Test Item Value Reference Range Comments WHITE BLOOD CELL COUNT (BEAKER) (test vvld=323) 10.3 K/ L 3.5-10.5 RED BLOOD CELL COUNT (BEAKER) (test crpr=180) 3.44 M/ L 3.93-5.22 HEMOGLOBIN (BEAKER) (test biac=892) 9.8 GM/DL 11.2-15.7 HEMATOCRIT (BEAKER) (test pccw=859) 30.9 % 34.1-44.9 MEAN CORPUSCULAR VOLUME (BEAKER) (test gkow=530) 89.8 fL 79.4-94.8 MEAN CORPUSCULAR HEMOGLOBIN (BEAKER) (test 28.5 pg 25.6-32.2 ysqh=991) MEAN CORPUSCULAR HEMOGLOBIN CONC (BEAKER) (test 31.7 GM/DL 32.2-35.5 athz=547) RED CELL DISTRIBUTION WIDTH (BEAKER) (test 13.2 % 11.7-14.4 tiev=240) PLATELET COUNT (BEAKER) (test qkzu=745) 152 K/CU MM 150-450 MEAN PLATELET VOLUME (BEAKER) (test spsi=860) 10.0 fL 9.4-12.3 NUCLEATED RED BLOOD CELLS (BEAKER) (test 0 /100 WBC 0-0 azju=982) NEUTROPHILS RELATIVE PERCENT (BEAKER) (test 81 % wwfk=091) LYMPHOCYTES RELATIVE PERCENT (BEAKER) (test 11 % qyjl=994) MONOCYTES RELATIVE PERCENT (BEAKER) (test 7 % alxs=839) EOSINOPHILS RELATIVE PERCENT (BEAKER) (test 0 % qgjm=926) BASOPHILS RELATIVE PERCENT (BEAKER) (test 0 % vbfy=138) NEUTROPHILS ABSOLUTE COUNT (BEAKER) (test 8.31 K/ L 1.56-6.13 fssd=549) LYMPHOCYTES ABSOLUTE COUNT (BEAKER) (test 1.11 K/ L 1.18-3.74 cmcz=487) MONOCYTES ABSOLUTE COUNT (BEAKER) (test 0.75 K/ L 0.24-0.36 focv=988) EOSINOPHILS ABSOLUTE COUNT (BEAKER) (test 0.02 K/ L 0.04-0.36 hsxy=756) BASOPHILS ABSOLUTE COUNT (BEAKER) (test 0.02 K/ L 0.01-0.08 yklq=984) IMMATURE GRANULOCYTES-RELATIVE PERCENT (BEAKER) 1 % 0-1 (test rvwi=5491) BASIC METABOLIC [id number] 05:02:00 Test Item Value Reference Range Comments SODIUM (BEAKER) (test 137 meq/L 136-145 poil=052) POTASSIUM (BEAKER) (test 3.1 meq/L 3.5-5.1 evwc=347) CHLORIDE (BEAKER) (test 104 meq/L 98-107 ixzd=978) CO2 (BEAKER) (test 21 meq/L 22-29 btwx=314) BLOOD UREA NITROGEN 6 mg/dL 7-21 (BEAKER) (test pymn=312) CREATININE (BEAKER) (test 0.55 mg/dL 0.57-1.25 rsbi=752) GLUCOSE RANDOM (BEAKER) 113 mg/dL 70-105 (test lkbb=376) CALCIUM (BEAKER) (test 8.8 mg/dL 8.4-10.2 lyrf=057) EGFR (BEAKER) (test 126 mL/min/1.73 sq m ESTIMATED GFR IS NOT mben=2746) ACCURATE CREATININE CLEARANCE IN PREDICTING GLOMERULAR FILTRATION RATE. ESTIMATED GFR IS NOT APPLICABLE FOR DIALYSIS PATIENTS. LACTIC ACID, VENOUS, WHOLE [id number] 04:52:00 Test Item Value Reference Range Comments LACTATE BLOOD VENOUS (2) (BEAKER) (test 0.9 mmol/L 0.5-2.2 pged=4772) Effective 07/08/2015: Units/Reference Range ChangeNew: 0.5-2.2 mmol/L Previous: 5 -20 mg/dLLACTIC ACID, VENOUS, WHOLE [id number] 18:06:00 Test Item Value Reference Range Comments LACTATE BLOOD VENOUS (2) (BEAKER) (test 0.7 mmol/L 0.5-2.2 hafz=2128) Effective 07/08/2015: Units/Reference Range ChangeNew: 0.5-2.2 mmol/L Previous: 5 -20 mg/[id number] 16:44:00 Test Item Value Reference Range Comments PROCALCITONIN (BEAKER) (test elfa=6982) 2.31 ng/mL <0.05 SEPSIS RISK (ng/mL)Low: 0.05-0.50Intermediate: 0.51-2.00High: & gt;=2.01LACTIC ACID, VENOUS, WHOLE [id number] 16:28:00 Test Item Value Reference Range Comments LACTATE BLOOD VENOUS (2) (BEAKER) (test 0.6 mmol/L 0.5-2.2 njft=4847) Effective 07/08/2015: Units/Reference Range ChangeNew: 0.5-2.2 mmol/L Previous: 5 -20 mg/dLRAD, CHEST, 1 VIEW, NON [id number] 16:20:00Reason for exam:-> PICC LINE PLACEMENT Should this be performed at the bedside?->YesFINAL REPORT AP chest HISTORY: PICC placement COMPARISON: None IMPRESSION:Right arm PICC present with tip at mid SVC. Heart size upper limits of normal. Lungs clear. Signed: Elio Sancheseport Verified Date/Time: 16:20:41 Reading Location: [address] Radiology Reading Room U/S , ENDOVAGINAL (EV)2018-01-01 09:51:00Reason for exam:->post feverReason for exam:->looking for endometritisFINAL REPORT Pelvic ultrasound dated 01/01/2018 Comment: Real-time [...] endometrium without increased vascular flow to suggest endometritis.2. Unable to visualize the left ovary. Signed: Ale Barreto Verified Date/Time: 01/01/2018 09:51:50 Reading Location: [address] Ultrasound Reading Room U/S, [id number] 09:51:00Reason for exam:->Post fever, looking for emdometritis.FINAL REPORT Pelvic ultrasound dated 01/01/2018 Comment: Real-time [...] endometrium without increased vascular flow to suggest endometritis.2. Unable to visualize the left ovary. Signed: Ale Barreto MDReport Verified Date/Time: 01/01/2018 09:51:50 Reading Location: [facility] [id number] Ultrasound Reading Room HEPATIC FUNCTION [id number] 07:49:00 Test Item Value Reference Range Comments TOTAL PROTEIN (BEAKER) (test nfsq=410) 5.1 gm/dL 6.0-8.3 ALBUMIN (BEAKER) (test xykk=4186) 2.5 g/dL 3.5-5.0 BILIRUBIN TOTAL (BEAKER) (test fhhk=983) 0.7 mg/dL 0.2-1.2 BILIRUBIN DIRECT (BEAKER) (test jhnt=260) 0.3 mg/dL 0.1-0.5 ALKALINE PHOSPHATASE (BEAKER) (test diwi=286) 74 U/L 40-150 AST (SGOT) (BEAKER) (test iriz=702) 31 U/L 5-34 ALT (SGPT) (BEAKER) (test virp=396) 37 U/L 6-55 BASIC METABOLIC [id number] 04:05:00 Test Item Value Reference Range Comments SODIUM (BEAKER) (test 134 meq/L 136-145 uklt=893) POTASSIUM (BEAKER) (test 3.5 meq/L 3.5-5.1 johe=096) CHLORIDE (BEAKER) (test 105 meq/L 98-107 ukif=180) CO2 (BEAKER) (test 22 meq/L 22-29 tzjg=727) BLOOD UREA NITROGEN 7 mg/dL 7-21 (BEAKER) (test nnid=383) CREATININE (BEAKER) (test 0.61 mg/dL 0.57-1.25 xjrg=067) GLUCOSE RANDOM (BEAKER) 114 mg/dL 70-105 (test qgiw=682) CALCIUM (BEAKER) (test 8.3 mg/dL 8.4-10.2 nauh=228) EGFR (BEAKER) (test 112 mL/min/1.73 sq m ESTIMATED GFR IS NOT nlfc=8678) ACCURATE CREATININE CLEARANCE IN PREDICTING GLOMERULAR FILTRATION RATE. ESTIMATED GFR IS NOT APPLICABLE FOR DIALYSIS PATIENTS. CBC W/PLT COUNT & AUTO [id number] 03:47:00 Test Item Value Reference Range Comments WHITE BLOOD CELL COUNT (BEAKER) (test hqjz=293) 13.5 K/ L 3.5-10.5 RED BLOOD CELL COUNT (BEAKER) (test kiaz=676) 3.56 M/ L 3.93-5.22 HEMOGLOBIN (BEAKER) (test ilbe=933) 10.2 GM/DL 11.2-15.7 HEMATOCRIT (BEAKER) (test xyci=231) 31.6 % 34.1-44.9 MEAN CORPUSCULAR VOLUME (BEAKER) (test odsi=157) 88.8 fL 79.4-94.8 MEAN CORPUSCULAR HEMOGLOBIN (BEAKER) (test 28.7 pg 25.6-32.2 gclc=949) MEAN CORPUSCULAR HEMOGLOBIN CONC (BEAKER) (test 32.3 GM/DL 32.2-35.5 ejfy=174) RED CELL DISTRIBUTION WIDTH (BEAKER) (test 13.2 % 11.7-14.4 jtcr=955) PLATELET COUNT (BEAKER) (test uytg=322) 155 K/CU MM 150-450 MEAN PLATELET VOLUME (BEAKER) (test tdrp=143) 9.7 fL 9.4-12.3 NUCLEATED RED BLOOD CELLS (BEAKER) (test 0 /100 WBC 0-0 bfgj=397) NEUTROPHILS RELATIVE PERCENT (BEAKER) (test 86 % abey=232) LYMPHOCYTES RELATIVE PERCENT (BEAKER) (test 6 % dvho=300) MONOCYTES RELATIVE PERCENT (BEAKER) (test 7 % zvjc=254) EOSINOPHILS RELATIVE PERCENT (BEAKER) (test 0 % jseq=221) BASOPHILS RELATIVE PERCENT (BEAKER) (test 0 % iksr=838) NEUTROPHILS ABSOLUTE COUNT (BEAKER) (test 11.54 K/ L 1.56-6.13 dgjb=855) LYMPHOCYTES ABSOLUTE COUNT (BEAKER) (test 0.78 K/ L 1.18-3.74 qpbg=882) MONOCYTES ABSOLUTE COUNT (BEAKER) (test 1.00 K/ L 0.24-0.36 obij=248) EOSINOPHILS ABSOLUTE COUNT (BEAKER) (test 0.01 K/ L 0.04-0.36 xekv=864) BASOPHILS ABSOLUTE COUNT (BEAKER) (test 0.03 K/ L 0.01-0.08 xtwj=262) IMMATURE GRANULOCYTES-RELATIVE PERCENT (BEAKER) 1 % 0-1 (test ohxs=3103) BLOOD CULTURE IDENTIFICATION [id number] 17:03:00 Test Item Value Reference Range Comments LISTERIA MONOCYTOGENES Not detected Not detected (test dmbk=[id number]) STAPHYLOCOCCUS (test Not detected Not detected zcoq=5621023) STAPHYLOCOCCUS AUREUS (test Not detected Not detected hmwb=0394166) STREPTOCOCCUS (test Detected Not detected First line therapy: eeni=1162612) VancomycinDe-escalate based on susceptibilities Reference Range: Not Detected STREPTOCOCCUS AGALACTIAE Detected Not detected First line therapy: (GROUP B) (test CeftriaxoneReference Range: jexr=[id number]) Not Detected STREPTOCOCCUS PNEUMONIAE Not detected Not detected (test iwcx=3355841) STREPTOCOCCUS PYOGENES Not detected Not detected (GROUP A) (test sxtb=3166628) ACINETOBACTER BAUMANNII Not detected Not detected (test haqb=7880272) HAEMOPHILUS INFLUENZAE Not detected Not detected (test uvey=1064972) NEISSERIA MENINGITIDIS Not detected Not detected (test ibwn=1162877) ENTEROBACTERIACEAE (test Not detected Not detected vvdo=6730405) ENTEROBACTER CLOACOE Not detected Not detected COMPLEX (test euxe=2616929) KLEBSIELLA OXYTOCA (test Not detected Not detected egol=2778535) KLEBSIELLA PNEUMONIAE (test Not detected Not detected zjnu=9392) PROTEUS (test twvz=5097679) Not detected Not detected SERRATIA MARCESCENS (test Not detected Not detected mubd=4973128) LEONA ALBICANS (test Not detected Not detected owrk=6438156) LEONA GLABRATA (test Not detected Not detected btmw=3162741) LEONA KRUSEI (test Not detected Not detected gpjt=8264557) LEONA PARAPSILOSIS (test Not detected Not detected jwpt=9122403) LEONA TROPICALIS (test Not detected Not detected qbtk=6440580) ESCHERICHIA COLI (test Not detected Not detected vdeb=7372159) METHICILLIN-RESISTANCE GENE Not detected (test vnqc=5413186) VANCOMYCIN-RESISTANCE GENE Not detected (test vxtf=6448929) CARBAPENEM-RESISTANCE GENE Not detected (test sits=5145553) ENTEROCOCCUS-BEAKER (test Not detected Not detected hqvf=5469076) PSEUDOMONAS Not detected Not detected AERUGINOSA-BEAKER (test rgze=8325368) Other bacteria and resistance markers not targeted by this PCR panel cannot be excluded; therefore clinical correlation and follow up of serology, culture results, and other molecular studies is required. The results are not intended to be used as the sole means for clinical diagnosis or patient management decisions. This sample was tested at the [facility] using the Epoch Blood Culture ID Panel. It is FDA cleared and has been verified and approved by the [facility] for clinical use. This laboratory is CLIA-certified and College ofAmerican Pathologists (CAP)-accredited to perform high complexity testing.URINALYSIS W/ REFLEX URINE [id number] 04:05:00 Test Item Value Reference Range Comments COLOR (BEAKER) (test qtay=961) Yellow CLARITY (BEAKER) (test idii=368) Hazy SPECIFIC GRAVITY UA (BEAKER) (test cekl=737) 1.038 1.001-1.035 PH UA (BEAKER) (test lvco=620) 6.0 5.0-8.0 PROTEIN UA (BEAKER) (test sjja=458) 30 mg/dL Negative GLUCOSE UA (BEAKER) (test lttf=047) Negative Negative KETONES UA (BEAKER) (test bzic=843) 150 mg/dL Negative BILIRUBIN UA (BEAKER) (test pdps=097) Negative Negative BLOOD UA (BEAKER) (test crkp=319) Negative Negative NITRITE UA (BEAKER) (test btaf=462) Negative Negative LEUKOCYTE ESTERASE UA (BEAKER) (test rvgk=382) Negative Negative UROBILINOGEN UA (BEAKER) (test sqfb=897) 0.2 mg/dL 0.2-1.0 RBC UA (BEAKER) (test sjvn=178) 1 /HPF WBC UA (BEAKER) (test geqq=468) 5 /HPF MUCUS (BEAKER) (test nhgy=7726) Rare SQUAMOUS EPITHELIAL (BEAKER) (test igvz=835) < /HPF SOURCE(BEAKER) (test xtcu=2265) SCREEN, [id number] 03:34:00 Test Item Value Reference Range Comments TEST URINE (BEAKER) (test cosv=645) Positive BASIC METABOLIC [id number] 02:45:00 Test Item Value Reference Range Comments SODIUM (BEAKER) (test 137 meq/L 136-145 vxno=043) POTASSIUM (BEAKER) (test 3.8 meq/L 3.5-5.1 azlj=031) CHLORIDE (BEAKER) (test 108 meq/L 98-107 fnrp=839) CO2 (BEAKER) (test 21 meq/L 22-29 ikjc=128) BLOOD UREA NITROGEN 6 mg/dL 7-21 (BEAKER) (test jitl=423) CREATININE (BEAKER) (test 0.63 mg/dL 0.57-1.25 zsmh=888) GLUCOSE RANDOM (BEAKER) 103 mg/dL 70-105 (test jrue=496) CALCIUM (BEAKER) (test 8.0 mg/dL 8.4-10.2 fmkj=700) EGFR (BEAKER) (test 108 mL/min/1.73 sq m ESTIMATED GFR IS NOT vqig=6316) ACCURATE CREATININE CLEARANCE IN PREDICTING GLOMERULAR FILTRATION RATE. ESTIMATED GFR IS NOT APPLICABLE FOR DIALYSIS PATIENTS. CBC W/PLT COUNT & AUTO [id number] 02:17:00 Test Item Value Reference Range Comments WHITE BLOOD CELL COUNT (BEAKER) (test dyyw=565) 9.0 K/ L 3.5-10.5 RED BLOOD CELL COUNT (BEAKER) (test vkbq=537) 3.59 M/ L 3.93-5.22 HEMOGLOBIN (BEAKER) (test fhdn=454) 10.6 GM/DL 11.2-15.7 HEMATOCRIT (BEAKER) (test eltz=029) 33.1 % 34.1-44.9 MEAN CORPUSCULAR VOLUME (BEAKER) (test ijml=641) 92.2 fL 79.4-94.8 MEAN CORPUSCULAR HEMOGLOBIN (BEAKER) (test 29.5 pg 25.6-32.2 kcjh=934) MEAN CORPUSCULAR HEMOGLOBIN CONC (BEAKER) (test 32.0 GM/DL 32.2-35.5 gxxz=358) RED CELL DISTRIBUTION WIDTH (BEAKER) (test 13.2 % 11.7-14.4 catj=216) PLATELET COUNT (BEAKER) (test rxus=589) 142 K/CU MM 150-450 MEAN PLATELET VOLUME (BEAKER) (test skeo=935) 9.7 fL 9.4-12.3 NUCLEATED RED BLOOD CELLS (BEAKER) (test 0 /100 WBC 0-0 uhhu=578) NEUTROPHILS RELATIVE PERCENT (BEAKER) (test 87 % ovtv=334) LYMPHOCYTES RELATIVE PERCENT (BEAKER) (test 6 % gnih=585) MONOCYTES RELATIVE PERCENT (BEAKER) (test 6 % qgpj=680) EOSINOPHILS RELATIVE PERCENT (BEAKER) (test 0 % xgcs=528) BASOPHILS RELATIVE PERCENT (BEAKER) (test 0 % pmmg=995) NEUTROPHILS ABSOLUTE COUNT (BEAKER) (test 7.86 K/ L 1.56-6.13 jloh=584) LYMPHOCYTES ABSOLUTE COUNT (BEAKER) (test 0.50 K/ L 1.18-3.74 cmng=081) MONOCYTES ABSOLUTE COUNT (BEAKER) (test 0.52 K/ L 0.24-0.36 oyvl=253) EOSINOPHILS ABSOLUTE COUNT (BEAKER) (test 0.00 K/ L 0.04-0.36 tony=737) BASOPHILS ABSOLUTE COUNT (BEAKER) (test 0.03 K/ L 0.01-0.08 izly=577) IMMATURE GRANULOCYTES-RELATIVE PERCENT (BEAKER) 1 % 0-1 (test irhx=9688) MR, SPINE, LUMBAR, [id number] 01:12:00Addendum BeginsREPORT STATUS:A There is T1/T2 hyperintense signal abnormalityin the anterior epidural space from L3-S2, nonspecific but may represent hemorrhage. No cord or nerve root compression. Findings discussed with Dr. Mackay of neurosurgery at approximately 1:10 AM 12/23/2017. Signed: Ruchi Soares MDReport Verified Date/Time: 12/31/2017 01:12:41 Reading Location: [address] Body Reading RoomAddendum EndsFINAL REPORT EXAM : MRI lumbar spine with and without contrast. CLINICAL HISTORY: Severe lumbar pain post day 1, concern for epidural hematoma TECHNIQUE: MRI of the lumbar spine was performed with and without intravenous contrast, utilizing the following sequences: Sagittal T1, T2, STIR; axial T1 and T2. COMPARISON: None. FINDINGS:There is maintenance of the lumbar curvature and alignment. There is no evidence for vertebral body fracture or subluxation. Bone marrow signal intensity is within normal limits. The conus medullaris terminates at L1. The cauda equina roots are unremarkable. There is no epidural hematoma. There is disc desiccation and mild disc space narrowing at L4/L5 and L5/S1. At T12-L1, there is no significant spinal canal and neuroforaminal stenosis. At L1-L2, there is no significant spinal canal and neuroforaminal stenosis. At L2-L3, there is no significant spinal canal and neuroforaminal stenosis. At L3-L4, there is no significant spinal canal and neuroforaminal stenosis. At L4-L5, there is a small right paracentral annular fissure. There is a small diffuse disc bulge flattening the ventral thecal sac. There is no significant neural foraminal stenosis. At L5-S1, there is a small central annular fissure. There is a small central disc protrusion without significant spinal canal stenosis. There is no significant neural foraminal stenosis. There is no abnormal enhancement. The visualized paraspinal and retroperitoneal soft tissues are unremarkable. IMPRESSION: No epidural hematoma.Mild degenerative discdisease without significant spinal canal or neural foraminal stenosis. Signed: Ruchi Soares Verified Date/Time: 12/31/2017 01:02:46 Reading Location: [facility] C013Y CT Body Reading Room PROTHROMBIN TIME/[id number] 20:33:00 Test Item Value Reference Range Comments PROTIME (BEAKER) (test nsno=372) 14.2 seconds 11.7-14.7 INR (BEAKER) (test lunk=809) 1.1 <=5.9 RECOMMENDED COUMADIN/WARFARIN INR THERAPY RANGESSTANDARD DOSE: 2.0 - 3.0 Includes: PROPHYLAXIS forvenous thrombosis, systemic embolization; TREATMENT for venous thrombosis and/or pulmonary embolus.HIGH RISK: Target INR is 2.5-3.5 for patients with mechanical heart valves.[id number] 20:33:00 Test Item Value Reference Range Comments PARTIAL THROMBOPLASTIN TIME (BEAKER) (test 30.8 seconds 22.5-36.0 pdiv=891) BASIC METABOLIC [id number] 20:28:00 Test Item Value Reference Range Comments SODIUM (BEAKER) (test 138 meq/L 136-145 lwip=412) POTASSIUM (BEAKER) (test 3.3 meq/L 3.5-5.1 ifqq=004) CHLORIDE (BEAKER) (test 109 meq/L 98-107 jrzj=921) CO2 (BEAKER) (test 20 meq/L 22-29 dsjf=992) BLOOD UREA NITROGEN 6 mg/dL 7-21 (BEAKER) (test wbxt=049) CREATININE (BEAKER) (test 0.53 mg/dL 0.57-1.25 mhay=733) GLUCOSE RANDOM (BEAKER) 99 mg/dL 70-105 (test pdif=331) CALCIUM (BEAKER) (test 7.9 mg/dL 8.4-10.2 fkns=746) EGFR (BEAKER) (test 131 mL/min/1.73 sq m ESTIMATED GFR IS NOT vbwr=8757) ACCURATE CREATININE CLEARANCE IN PREDICTING GLOMERULAR FILTRATION RATE. ESTIMATED GFR IS NOT APPLICABLE FOR DIALYSIS PATIENTS. CBC W/PLT COUNT & AUTO [id number] 20:14:00 Test Item Value Reference Range Comments WHITE BLOOD CELL COUNT (BEAKER) (test fhri=918) 8.6 K/ L 3.5-10.5 RED BLOOD CELL COUNT (BEAKER) (test hwpq=065) 3.77 M/ L 3.93-5.22 HEMOGLOBIN (BEAKER) (test wgie=418) 11.0 GM/DL 11.2-15.7 HEMATOCRIT (BEAKER) (test hrsc=511) 33.5 % 34.1-44.9 MEAN CORPUSCULAR VOLUME (BEAKER) (test hiut=632) 88.9 fL 79.4-94.8 MEAN CORPUSCULAR HEMOGLOBIN (BEAKER) (test 29.2 pg 25.6-32.2 sech=689) MEAN CORPUSCULAR HEMOGLOBIN CONC (BEAKER) (test 32.8 GM/DL 32.2-35.5 twkf=132) RED CELL DISTRIBUTION WIDTH (BEAKER) (test 13.3 % 11.7-14.4 zzky=251) PLATELET COUNT (BEAKER) (test euzw=549) 157 K/CU MM 150-450 MEAN PLATELET VOLUME (BEAKER) (test qgvo=199) 9.9 fL 9.4-12.3 NUCLEATED RED BLOOD CELLS (BEAKER) (test 0 /100 WBC 0-0 hleh=453) NEUTROPHILS RELATIVE PERCENT (BEAKER) (test 90 % pkpt=915) LYMPHOCYTES RELATIVE PERCENT (BEAKER) (test 3 % zmlm=861) MONOCYTES RELATIVE PERCENT (BEAKER) (test 5 % uhob=107) EOSINOPHILS RELATIVE PERCENT (BEAKER) (test 0 % rbdz=175) BASOPHILS RELATIVE PERCENT (BEAKER) (test 0 % jggf=621) NEUTROPHILS ABSOLUTE COUNT (BEAKER) (test 7.69 K/ L 1.56-6.13 bajc=900) LYMPHOCYTES ABSOLUTE COUNT (BEAKER) (test 0.29 K/ L 1.18-3.74 fynj=760) MONOCYTES ABSOLUTE COUNT (BEAKER) (test 0.42 K/ L 0.24-0.36 wkvu=093) EOSINOPHILS ABSOLUTE COUNT (BEAKER) (test 0.00 K/ L 0.04-0.36 mgnf=961) BASOPHILS ABSOLUTE COUNT (BEAKER) (test 0.02 K/ L 0.01-0.08 tujc=849) IMMATURE GRANULOCYTES-RELATIVE PERCENT (BEAKER) 2 % 0-1 (test zplz=1885)
[2018-09-15 23:38] LABS: Urine Blood NEGATIVE (NEG); Urine Glucose NEGATIVE (NEG); Urine Protein NEGATIVE (NEG)
--- NOTE | 2018-09-16 00:10 | ER ---
Nurse's Notes [facility] Name: Bhaskar Harris Age: 37 yrs Sex: Female : 1980 Arrival Date: 09/15/2018 Time: 22:54 Bed 14 Private MD: Diagnosis: Pain in left thigh Presentation: 09/15 23:01 Presenting complaint: Patient states: I had a recent infection about two weeks ago on la1 one of my fingers and am almost done with my augmentin. Today I started having pain my my left upper leg, About 9 month ago I had my child and became septic with the infection settling in my SI joints and the pain is in the same area on the left side. I just wanted to be same and get checked out. Transition of care: patient was not received from another setting of care. Onset of symptoms was September 15, 2018. Risk Assessment: Do you want to hurt yourself or someone else? Patient reports no desire to harm self or others. Initial Sepsis Screen: Does the patient meet any 2 criteria? No. Patient's initial sepsis screen is negative. Does the patient have a suspected source of infection? No. Patient's initial sepsis screen is negative. Care prior to arrival: None. 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 - Social history:: Smoking status: Patient/guardian denies using tobacco. - Ebola Screening: : No symptoms or risks identified at this time. Screenin/14 00:20 Abuse screen: Denies threats or abuse. Nutritional screening: No deficits noted. jb4 Tuberculosis screening: No symptoms or risk factors identified. Fall Risk Ambulatory Aid- Crutches/Cane/Walker (15 pts). Total Kurtz Fall Scale indicates No Risk (0-24 pts). Assessment: 00:10 General: Appears in no apparent distress. uncomfortable, Behavior is calm, cooperative, jb4 appropriate for age, Pt reports having pain in the left leg when walking, was concerned of possible infection. no redness or swelling noted.. Pain: Complains of pain in left leg. Neuro: Level of Consciousness is awake, alert, obeys commands, Oriented to person, place, time, situation. Cardiovascular: Patient's skin is warm and dry. Respiratory: Airway is patent Respiratory effort is even, unlabored, Respiratory pattern is regular, symmetrical. GI: No signs and/or symptoms were reported involving the gastrointestinal system. : No signs and/or symptoms were reported regarding the genitourinary system. EENT: No signs and/or symptoms were reported regarding the EENT system. Derm: Skin is intact, Skin is pink, warm \T\ dry. Musculoskeletal: Circulation, motion, and sensation intact. Range of motion: intact in all extremities. 00:20 Reassessment: Patient appears in no apparent distress at this time. Patient is alert, jb4 oriented x 3, equal unlabored respirations, skin warm/dry/pink. Pt left ED ambulatory with family, steady gait, verbalized understanding of d/c and follow up instructions. no questions at this time. Vital Signs: 09/15 23:07 BP 115 / 73; Pulse 71; Resp 16; Temp 97.4; Pulse Ox 98% on R/A; Weight 72.57 kg; Height la1 5 ft. 5 in. (165.10 cm); 23:07 Body Mass Index 26.63 (72.57 kg, 165.10 cm) la1 ED Course: 22:54 Patient arrived in ED. mr 23:01 Arm band placed on left wrist. la1 23:05 Triage completed. la1 23:43 Jerzy Viera MD is Attending Physician. 09/16 00:20 Patient has correct armband on for positive identification. Bed in low position. Call jb4 light in reach. Side rails up X 1. 00:20 No provider procedures requiring assistance completed. Patient did not have IV access jb4 during this emergency room visit. 00:45 Matt Gonzalez, RN is Primary Nurse. jb4 Administered Medications: No medications were administered Outcome: 00:09 Discharge ordered by . gs 00:20 Discharged to home ambulatory, with family. jb4 00:20 Condition: stable 00:20 Discharge instructions given to patient, family, Instructed on discharge instructions, follow up and referral plans. Demonstrated understanding of instructions, follow-up care. 00:45 Patient left the ED. jb4 Signatures: Tammie Akers Lee RN RN la1 Matt Gonzalez RN RN jb4 Jerzy Viera MD MD gs
--- NOTE | 2018-09-16 00:10 | EDPHYS ---
Physician Documentation [facility] Name: Bhaskar Harris Age: 37 yrs Sex: Female : 1980 Arrival Date: 09/15/2018 Time: 22:54 Bed 14 Private MD: ED Physician Jerzy Viera HPI: 09/16 01:35 This 37 yrs old Female presents to ER via Ambulatory with complaints of Leg gs Pain. 01:35 The patient presents with pain, that is acute. The complaints affect the lateral aspect gs of left thigh. Context: was sitting chair got up started walking got pain in lateral thigh and was painful to walk, pain is resolving. pt is concerned she might be developing sepsis, recently on abx for finger infection now healed. 01:53 Onset: The symptoms/episode began/occurred acutely. Associated signs and symptoms: gs Pertinent negatives fever, numbness, rash, warmth, weakness, redness. Severity of symptoms: At their worst the symptoms were moderate, in the emergency department the symptoms have improved, markedly. The patient has not experienced similar symptoms in the past. 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 - Social history:: Smoking status: Patient/guardian denies using tobacco. - Ebola Screening: : No symptoms or risks identified at this time. ROS: 09/16 01:53 All other systems are negative. gs Exam: 01:53 Head/Face: Normocephalic, atraumatic. Eyes: Pupils equal round and reactive to light, gs extra-ocular motions intact. Lids and lashes normal. Conjunctiva and sclera are non-icteric and not injected. Cornea within normal limits. Periorbital areas with no swelling, redness, or edema. ENT: Nares patent. No nasal discharge, no septal abnormalities noted. Tympanic membranes are normal and external auditory canals are clear. Oropharynx with no redness, swelling, or masses, exudates, or evidence of obstruction, uvula midline. Mucous membranes moist. Neck: Trachea midline, no thyromegaly or masses palpated, and no cervical lymphadenopathy. Supple, full range of motion without nuchal rigidity, or vertebral point tenderness. No Meningismus. Chest/axilla: Normal chest wall appearance and motion. Nontender with no deformity. No lesions are appreciated. Cardiovascular: Regular rate and rhythm with a normal S1 and S2. No gallops, murmurs, or rubs. Normal PMI, no JVD. No pulse deficits. Respiratory: Lungs have equal breath sounds bilaterally, clear to auscultation and percussion. No rales, rhonchi or wheezes noted. No increased work of breathing, no retractions or nasal flaring. Abdomen/GI: Soft, non-tender, with normal bowel sounds. No distension or tympany. No guarding or rebound. No evidence of tenderness throughout. Back: No spinal tenderness. No costovertebral tenderness. Full range of motion. Skin: Warm, dry with normal turgor. Normal color with no rashes, no lesions, and no evidence of cellulitis. Neuro: Awake and alert, GCS 15, oriented to person, place, time, and situation. Cranial nerves II-XII grossly intact. Motor strength 5/5 in all extremities. Sensory grossly intact. Cerebellar exam normal. Normal gait. 01:53 Constitutional: The patient appears alert, awake. 01:53 Musculoskeletal/extremity: Extremities: all appear grossly normal, with no appreciated pain with palpation, ROM: no acute changes, Circulation is intact in all extremities. 01:53 Skin: cellulitis, is not appreciated. Vital Signs: 09/15 23:07 BP 115 / 73; Pulse 71; Resp 16; Temp 97.4; Pulse Ox 98% on R/A; Weight 72.57 kg; Height la1 5 ft. 5 in. (165.10 cm); 23:07 Body Mass Index 26.63 (72.57 kg, 165.10 cm) la1 MDM: 23:49 Patient medically screened. gs 09/16 01:53 Differential diagnosis: muscle strain, no signs of infection resolving pain, discussed gs with patient will monitor closely. Data reviewed: vital signs, nurses notes. Counseling: I had a detailed discussion with the patient and/or guardian regarding: the historical points, exam findings, and any diagnostic results supporting the discharge/admit diagnosis, lab results, radiology results, the need for outpatient follow up. Response to treatment: the patient's symptoms have markedly improved after treatment, the patient's symptoms have resolved after treatment. 09/15 23:24 Order name: Urine Dipstick--Ancillary (enter results); Complete Time: 00:07 mw2 09/15 23:24 Order name: Urine --Ancillary (enter results); Complete Time: 00: mw2 Administered Medications: No medications were administered Disposition: 09/16/18 00:09 Discharged to Home. Impression: Pain in left thigh. - Condition is Stable. - Discharge Instructions: Pain Without a Known Cause. - Medication Reconciliation Form, Thank You Letter, Antibiotic Education, Prescription Opioid Use form. - Follow up: Private Physician; When: 1 - 2 days; Reason: Re-evaluation by your physician. Signatures: Dispatcher [employer] EDMS Mac Reyes RN RN la1 Mtat Gonzalez RN RN jb4 Jerzy Viera MD MD Corrections: (The following items were deleted from the chart) 00:45 00:09 09/16/2018 00:09 Discharged to Home. Impression: Pain in left thigh. Condition is jb4 Stable. Forms are Medication Reconciliation Form, Thank You Letter, Antibiotic Education, Prescription Opioid Use. Follow up: Private Physician; When: 1 - 2 days; Reason: Re-evaluation by your physician. gs
== END 2018-09-16 00:45 | disposition home or self-care (01) ==
LOC: ER 22:51
DX: M79.652 Pain in left thigh (principal)
CPT/HCPCS: 81003; 81025; 99281